=== PATIENT | male | born 1960 | race Caucasian/White ===

== ENCOUNTER 2018-09-03 11:10 | Emergency (ER) | payer OTHER ==
[2018-09-03 11:22] VITALS: BMI 28.5
[2018-09-03] MEDS ORDERED: ALBUTEROL SO4 2.5/IPRATROPIUM 0.5 INH SOL 3 ML VIAL.NEB. NEB ONE (11:35)
[2018-09-03] MEDS: ALBUTEROL SO4 2.5/IPRATROPIUM 0.5 INH SOL 3 ML VIAL.NEB. NEB SCH ×4 (12:08→12:59)
--- NOTE | 2018-09-03 12:08 | PDOC ---
Attending Attestation - HPI HPI: 09/03/18 12:26 The patient is a 58 year old male with a significant past medical history of COPD, anxiety, and hep C who presents to the emergency department for evaluation of nonproductive cough since Thursday. He states he has slight nasal congestion the day prior to his cough onset. He denies SOB, CP, Palpitations, Dizziness, lightheadedness. He denies headache. He denies urinary frequency, urgency, hematuria, and dysuria. He denies changes in BMs. Allergies: Penicillins <Paulette West - Last Filed: 09/03/18 12:26> - Resident Resident Name: Elisa Malhotra - ED Attending Attestation I have performed the following: I have examined & evaluated the patient, The case was reviewed & discussed with the resident, I agree w/resident's findings & plan, Exceptions are as noted - Physicial Exam PE: GENERAL: Awake, alert, and fully oriented, in no acute distress HEAD: No signs of trauma EYES: PERRLA, EOMI, sclera anicteric, conjunctiva clear ENT: Auricles normal inspection, hearing grossly normal, nares patent, oropharynx clear without exudates. Moist mucosa NECK: Normal ROM, supple, no lymphadenopathy, JVD, or masses LUNGS: Dec air entry B/L, intermittent hacking cough. +Rhonchi and exp wheezes B /L. HEART: Regular rate and rhythm, normal S1 and S2, no murmurs, rubs or gallops ABDOMEN: Soft, nontender, normoactive bowel sounds. No guarding, no rebound. No masses EXTREMITIES: Normal range of motion, no edema. No clubbing or cyanosis. No cords, erythema, or tenderness NEUROLOGICAL: Cranial nerves II through XII grossly intact. Normal speech, normal gait. Motor and sensation intact SKIN: Warm, Dry, normal turgor, no rashes or lesions noted. - Medical Decision Making COPD exacerbation likely due to viral illness, with exacerbation of bronchitis. Will give nebs, steroids, azithro. <Marlen Sauer - Last Filed: 09/03/18 12:36> Attestations - Attestations 09/03/18 12:30 Documentation prepared by Paulette West, acting as medical file clerk for Marlen Sauer MD <Paulette West - Last Filed: 09/03/18 12:26>
[2018-09-03] MEDS ORDERED: methylPREDNISolone NA SUCC 125 MG/2 ML VIAL IVPUSH ONE (12:24)
--- NOTE | 2018-09-03 12:24 | PDOC ---
History of Present Illness - General Chief Complaint: Shortness of Breath Stated Complaint: SOB Time Seen by Provider: 09/03/18 11:52 - History of Present Illness Initial Comments: 09/03/18 12:22 Patient is a 58 y/o male with a hsitory of COPD, anxiety, and hep C who presents for cough. On thursday he felt his sinuses feeling a little congested. By thursday he started coughing and it has not gotten better. The coughing at night is especially bothersome, he bought over the counter cold medicine but it has not helped. He has abdominal pain from coughing so much. His COPD has been under control with his Spiriva and Advair but for the last couple of months he has not had his Advair due to insurance refusing to pay for it. he does not use oxygen at home. He is not bringing any sputum up with his cough. He had a fever earlier in the week but reports it has since resolved. Denies nausea, vomiting, chest pain, headache. Past History - Past Medical History Allergies/Adverse Reactions: Allergies Allergy/AdvReac Type Severity Reaction Status Date / Time Penicillins Allergy Verified 09/03/18 11:18 Home Medications: Ambulatory Orders Aspirin [ASA -] 81 mg PO DAILY 09/03/18 Azithromycin 250 mg PO DAILY #4 tablet 09/03/18 Cholecalciferol (Vitamin D3) [Vitamin D3 -] 1,200 unit PO DAILY 09/03/18 Donepezil HCl [Aricept] 10 mg PO DAILY 09/03/18 Duloxetine HCl [Cymbalta -] 30 mg PO DAILY 09/03/18 Fluticasone/Salmeterol [Advair 250-50 Diskus] 2 inhaler IH DAILY 09/03/18 Guaifenesin AC [Robitussin AC] 5 ml PO Q6H PRN #60 ml MDD 20 mL 09/03/18 Lamotrigine [Lamictal] 150 mg PO DAILY 09/03/18 Tiotropium [place] [Spiriva] 1 inh IH DAILY 09/03/18 COPD: Yes (COPD, BROKEN RIBS) Psychiatric Problems: Yes (DEPRESSION, ANXEITY) - Suicide/Smoking/Psychosocial Hx Smoking History: Former smoker Have you smoked in the past 12 months: Yes Number of Cigarettes Smoked Daily: 10 If you are a former smoker, when did you quit?: 05/02 Information on smoking cessation initiated: No 'Breaking Loose' booklet given: 09/28/17 Hx Alcohol Use: No Drug/Substance Use Hx: No Substance Use Type: None Review of Systems - Review of Systems Constitutional: No: Chills, Fever HEENTM: No: Eye Pain Respiratory: Yes: Cough, Shortness of Breath, Wheezing Cardiac (ROS): No: Chest Pain ABD/GI: No: Diarrhea, Nausea, Vomiting *Physical Exam - Vital Signs Last Vital Signs Temp Pulse Resp BP Pulse Ox 98.6 F 105 H 22 H 149/90 96 09/03/18 11:19 09/03/18 11:19 09/03/18 11:19 09/03/18 11:19 09/03/18 11:19 - Physical Exam Comments: 09/03/18 12:35 GENERAL: A&O x3, no acute distress, HEART: RRR, no murmurs, rubs, or gallops LUNGS: expiratory wheezes, coughing without sputum production ABDOMEN: soft, nontender to palpation EXTREMITES: no pitting edema SKIN: no rashes or lesions noted Moderate Sedation - Procedure Monitoring Vital Signs: Procedure Monitoring Vital Signs Temperature 98.6 F 09/03/18 11:19 Pulse Rate 105 H 09/03/18 11:19 Respiratory Rate 22 H 09/03/18 11:19 Blood Pressure 149/90 09/03/18 11:19 O2 Sat by Pulse Oximetry (%) 96 09/03/18 11:19 ED Treatment Course - LABORATORY CBC & Chemistry Diagram: 09/03/18 12:45 09/03/18 12:45 - RADIOLOGY Radiology Studies Ordered: Category Date Time Status CHEST X-RAY PORTABLE* [RAD] Routine Radiology 09/04/18 06:00 Ordered Medical Decision Making - Medical Decision Making 09/03/18 12:39 f/u CXR, labs, solumedrol 125 given once, azythromycin 500 once 09/03/18 14:59 CXR clear, labs WNL, symptoms improved with medication, stable for DC *DC/Admit/Observation/Transfer Diagnosis at time of Disposition: COPD exacerbation - Discharge Dispostion Disposition: HOME Condition at time of disposition: Improved - Prescriptions Prescriptions: Azithromycin 250 mg PO DAILY #4 tablet Guaifenesin AC [Robitussin AC] 5 ml PO Q6H PRN #60 ml MDD 20 mL PRN Reason: Cough - Referrals Referrals: Arie Martin MD [Primary Care Provider] - - Patient Instructions Printed Discharge Instructions: DI for Chronic Obstructive Pulmonary Disease Additional Instructions: You came to the Emergency Department for coughing that cause your COPD to be exacerbated. Please take: Azythromycin 250 mg by mouth for four days Robitussin 5 mL by mouth every 6 hours as needed. Do not exceed 20 mL/day Please make an appointment to follow up with your director of clinical education in one week. Please continue to take your home medications as prescribed. Return to the Emergency Department if you have nausea, vomiting, shortness of breath, chest pain, or headache. - Post Discharge Activity
[2018-09-03] MEDS ORDERED: AZITHROMYCIN IVPB 500 MG in DEXTROSE 5%-WATER - 250 ML IVPB ONE (12:25)
[2018-09-03] MEDS ORDERED: guaiFENesin/CODEINE 10 ML UNIT-DOSE CUPS PO ONE (12:26)
[2018-09-03] MEDS ORDERED: guaiFENesin/CODEINE 5 ML UNIT-DOSE CUPS PO ONE (12:36)
[2018-09-03] MEDS ORDERED: AZITHROMYCIN IVPB 500 MG/250 ML BAG IVPB ONE (12:36)
[2018-09-03] MEDS ORDERED: methylPREDNISolone NA SUCC 125 MG/2 ML VIAL ONE (12:36)
[2018-09-03 13:06] LABS: HEMATOCRIT 47.4 % (35.4-49); HEMOGLOBIN 16.4 GM/dL (11.7-16.9); MCH 31.2 pg (25.7-33.7); MCHC 34.5 g/dl (32.0-35.9); MEAN CELL VOLUME 90.3 fl (80-96); MEAN PLT VOLUME 6.8 fl (7.5-11.1); PLATELET COUNT 311 K/MM3 (134-434); RBC 5.25 M/mm3 (4.00-5.60); RDW 13.7 % (11.9-15.9); WHITE BLOOD COUNT 9.8 K/mm3 (4.0-10.0)
[2018-09-03 13:34] LABS: ALK PHOS 110 U/L (45-117); ANION GAP 8 MMOL/L (8-16); BILIRUBIN,TOTAL 0.6 mg/dL (0.2-1); BLOOD UREA NITROGEN 9 mg/dL (7-18); CALCIUM 8.9 mg/dL (8.5-10.1); CHLORIDE 100 mmol/L (98-107); CO2 26 mmol/L (21-32); CREATININE 0.8 mg/dL (0.55-1.3); GLUCOSE,RANDOM 102 mg/dL (74-106); POTASSIUM 3.6 mmol/L (3.5-5.1); SGOT/AST 13 U/L (15-37); SGPT/ALT 22 U/L (13-61); SODIUM 134 mmol/L (136-145); TOT PROT 7.4 g/dl (6.4-8.2)
[2018-09-03 16:02] VITALS: BP 143/78; PULSE 98; TEMP 98.3
--- NOTE | 2018-09-04 17:12 | EKG ---
Test Reason : Blood Pressure : / mmHG Vent. Rate : 097 BPM Atrial Rate : 097 BPM P-R Int : 150 ms QRS Dur : 094 ms QT Int : 332 ms P-R-T Axes : 075 004 055 degrees QTc Int : 421 ms NORMAL SINUS RHYTHM NORMAL ECG WHEN COMPARED WITH ECG OF 28-SEP-2017 17:26, NO SIGNIFICANT CHANGE WAS FOUND Confirmed by EFFIE CIFUENTES MD ([id number]) on 09/04/2018 5:12:16 PM Referred By: Confirmed By:EFFIE CIFUENTES MD
== END 2018-09-03 15:45 | disposition home or self-care (01) ==
LOC: JER 11:10
PROC: 3E0F7GC Introduction of Other Therapeutic Substance into Respiratory Tract, Via Natural or Artificial Opening (ICD-10-PCS; principal; 2018-09-03)
PROC: 3E03329 Introduction of Other Anti-infective into Peripheral Vein, Percutaneous Approach (ICD-10-PCS; 2018-09-03)
PROC: 3E033GC Introduction of Other Therapeutic Substance into Peripheral Vein, Percutaneous Approach (ICD-10-PCS; 2018-09-03)
DX: J44.9 Chronic obstructive pulmonary disease, unspecified (principal); Z87.891 Personal history of nicotine dependence; F41.8 Other specified anxiety disorders
CPT/HCPCS: 36415; 71045-TC-FY; 80053; 85027; 93005; 93010; 94640; 96365; 96375; 99282-25

== ENCOUNTER 2019-06-20 12:00 | Day surgery (SDC) | payer OTHER ==
[2019-06-17 15:02] VITALS: BMI 25.0
[2019-06-20 14:25] VITALS: TEMP 98
[2019-06-20 15:27] VITALS: BP 128/81; PULSE 81
--- NOTE | 2019-06-22 16:38 | PATH ---
Surgical Pathology Report Patient Name: MARICRUZ HAINES [facility]. Rec. #: [id number] /Age/Gender: 1960 (Age: 59) / M Account: [id number] Location: U-ENDOSCOPY Taken: 06/20/2019 Received: 06/21/2019 Reported: 06/22/2019 Physicians: Emmanuel Glover M.D. Specimen(s) Received A: DISTAL TRANSVERSE COLON POLYP B: HOT SNARE MID TRANSVERSE COLON POLYP C: BX HEPATIC FLEXURE POLYP D: HEPATIC FLEXURE THICKENED FOLD E: PROXIMAL TRANSVERSE COLON POLYP F: PROXIMAL DESCENDING COLON POLYPS G: MID DESCENDING COLON POLYP Clinical History Family history of colon cancer, history of colon polyp Postoperative diagnosis: Polyps, hepatic flexure thickened fold Final Diagnosis A. DISTAL TRANSVERSE COLON POLYP, POLYPECTOMY: TUBULAR ADENOMA. B. MID TRANSVERSE COLON POLYP, POLYPECTOMY: TUBULAR ADENOMA. C. HEPATIC FLEXURE POLYP, POLYPECTOMY: TUBULAR ADENOMA. D. HEPATIC FLEXURE THICKENED FOLD, BIOPSY: COLONIC MUCOSA WITH FOCAL SURFACE HYPERPLASTIC CHANGE AND REACTIVE LYMPHOID AGGREGATE. E. PROXIMAL TRANSVERSE COLON POLYP, POLYPECTOMY: TUBULOVILLOUS ADENOMA. F. PROXIMAL DESCENDING COLON POLYPS (3), POLYPECTOMY: TUBULAR ADENOMA, THREE FRAGMENTS. G. MID DESCENDING COLON POLYP, POLYPECTOMY: TUBULAR ADENOMA. Electronically Signed Tim Boucher M.D. Gross Description A. Received in formalin, labeled "biopsy distal transverse colon polyp" is a herrera, irregular portion of soft tissue measuring 0.5 cm. in greatest dimension. The specimen is submitted in toto in one cassette. B. Received in formalin, labeled "mid transverse colon polyp" are 3 herrera, irregular portions of soft tissue ranging from 0.4-0.6 cm. in greatest dimension. The specimens are submitted in toto in one cassette. C. Received in formalin, labeled "hepatic flexure polyp" is a herrera, polypoid portion of soft tissue measuring 0.6 cm. in greatest dimension. The specimen is submitted in toto in one cassette. D. Received in formalin, labeled "biopsy hepatic flexure thickened fold" are 2 herrera, irregular portions of soft tissue measuring 0.3 and 0.5 cm. in greatest dimension. The specimens are submitted in toto in one cassette. E. Received in formalin, labeled "proximal transverse colon polyp" are 2 herrera, irregular portions of soft tissue measuring 0.4 and 0.6 cm. in greatest dimension. The specimens are submitted in toto in one cassette. F. Received in formalin, labeled "proximal descending colon polyps" are 3 herrera, irregular portions of soft tissue ranging from 0.2-0.5 cm. in greatest dimension. The specimens are submitted in toto in one cassette. G. Received in formalin, labeled "mid descending colon polyp" is a herrera, polypoid portion of soft tissue measuring 0.7 cm. in greatest dimension. The specimen is submitted in toto in one cassette. 06/21/2019 saudi06/21/2019
== END 2019-06-20 15:10 | disposition home or self-care (01) ==
LOC: JOR 12:00 → JASU-ENDO 12:00
PROVIDERS: ATTEND Internal Medicine Gastroenterology
PROC: 0DBL8ZX Excision of Transverse Colon, Via Natural or Artificial Opening Endoscopic, Diagnostic (ICD-10-PCS; principal; 2019-06-20 14:00)
DX: Z12.11 Encounter for screening for malignant neoplasm of colon (principal); Z86.010 Personal history of colon polyps; Z80.0 Family history of malignant neoplasm of digestive organs; D12.4 Benign neoplasm of descending colon; D12.3 Benign neoplasm of transverse colon
CPT/HCPCS: 88305-TC

== ENCOUNTER 2020-01-02 15:53 | Emergency (ER) | payer OTHER ==
[2020-01-02 16:03] VITALS: TEMP 98.8; BMI 23.6
--- NOTE | 2020-01-02 16:03 | PDOC ---
Rapid Medical Evaluation Medical Evaluation: Allergies Allergy/AdvReac Type Severity Reaction Status Date / Time Penicillins Allergy Verified 11/18/19 18:19 IVP DYE Allergy Uncoded 11/18/19 18:19 01/02/20 15:59 59 yo M h/o COPD, depression, anxiety, right hand dominant c/o unable to move L wrist since yesterday am. denies trauma, f/c, weakness, ULRICH, numbness, tingling or any other complaint. sent to ED from urgent care center. VSS L wrist drop ambulatory A/P: L wrist drop to ED for eval
--- NOTE | 2020-01-02 16:13 | PDOC ---
History of Present Illness - General Chief Complaint: Weakness Stated Complaint: L/ARM WEAKNESS Time Seen by Provider: 01/02/20 16:12 History Source: Patient Exam Limitations: No Limitations - History of Present Illness Initial Comments: 01/02/20 16:13 59 yo M h/o COPD, depression, anxiety, hepC, right hand dominant presenting w wrist drop and LUE numbness/weakness since Thursday morning. Told to go to ED for further eval by PCP but didn't come until now d/t fear of covid. Symptoms have mildly improved since yesterday. May have slept on L arm overnight. Denies arm pain, trauma Past History - Medical History Allergies/Adverse Reactions: Allergies Allergy/AdvReac Type Severity Reaction Status Date / Time Penicillins Allergy Verified 01/02/20 16:03 IVP DYE Allergy Uncoded 01/02/20 16:03 Home Medications: Ambulatory Orders Aspirin [ASA -] 81 mg PO DAILY 09/03/18 Fluticasone/Salmeterol [Advair 250-50 Diskus] 2 puff PO DAILY 09/03/18 Tiotropium [place] [Spiriva] 2 puff IH DAILY 09/03/18 Clindamycin [Cleocin -] 300 mg PO Q6HPO #28 capsule 11/18/19 Divalproex *ER* [Depakote *ER* -] 750 mg PO DAILY 11/18/19 Duloxetine HCl [Cymbalta] 40 mg PO DAILY 11/18/19 Duloxetine HCl [Cymbalta] 120 mg PO DAILY 11/18/19 COPD: Yes (COPD, BROKEN RIBS) GI Disorders: Yes (COLON POLYP) Liver Disease: Yes (HAD HEPATITIS B and C IN THE PAST) Psychiatric Problems: Yes (DEPRESSION, ANXEITY) - Immunization History Immunization Up to Date: No - Psycho-Social/Smoking History Smoking History: Never smoked Have you smoked in the past 12 months: Yes Number of Cigarettes Smoked Daily: 10 If you are a former smoker, when did you quit?: 05/02 'Breaking Loose' booklet given: 06/20/19 Review of Systems - Review of Systems Constitutional: No: Chills, Fever HEENTM: No: Eye Pain, Ear Discharge Respiratory: No: Cough, Shortness of Breath Cardiac (ROS): No: Chest Pain, Lightheadedness ABD/GI: No: Nausea, Vomiting : No: Burning, Dysuria Musculoskeletal: No: Back Pain, Joint Pain Integumentary: No: Bruising, Dryness Neurological: No: Seizure, Ataxia Psychiatric: No: Anxiety, Depression Endocrine: No: Intolerance to Cold, Intolerance to Heat Hematologic/Lymphatic: No: Anemia, Blood Clots *Physical Exam - Vital Signs Last Vital Signs Temp Pulse Resp BP Pulse Ox 98.8 F 89 18 141/86 96 01/02/20 15:56 01/02/20 15:56 01/02/20 15:56 01/02/20 15:56 01/02/20 15:56 - Physical Exam General Appearance: Yes: Nourished, Appropriately Dressed. No: Apparent Distress HEENT: positive: EOMI, YOU, Normal Voice, Hearing Grossly Normal, Other (equal sensation alessandro face, normal eyelid closing). negative: Scleral Icterus (R), Scleral Icterus (L) Neck: positive: Other (equal shoulder shrug) Respiratory/Chest: positive: Lungs Clear, Normal Breath Sounds. negative: Chest Tender, Respiratory Distress Cardiovascular: positive: Regular Rhythm, Regular Rate, S1, S2. negative: Edema, Murmur Comments:: 01/02/20 16:49 2+ radial pulses alessandro Gastrointestinal/Abdominal: positive: Normal Bowel Sounds, Flat, Soft. negative: Tender, Organomegaly Extremity: positive: Other (Reduced sensation dorsal>plantar L forearm and hand, wrist drop, not tender, warm, weak finger and wrist extension, 5/5 shoulder flex/extension. 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 negative: Motor Strength 5/5 Medical Decision Making - Medical Decision Making 01/02/20 16:47 59 yo M h/o COPD, depression, anxiety, hepC, right hand dominant presenting w wrist drop and LUE numbness/weakness since Thursday d/t radial nerve compression/Thursday palsy. Distal pulses intact. No sign of trauma. Low concern for CVA (no cranial nerve involvement) DC home w wrist splint, neuro referral Discharge - Discharge Information Problems reviewed: Yes Clinical Impression/Diagnosis: Thursday nerve palsy Qualifiers: Laterality: left Qualified Code(s): G56.32 - Lesion of radial nerve, left upper limb Condition: Good Disposition: HOME - Follow up/Referral Referrals: Arie Martin MD [Primary Care Provider] - Dat Forbes MD [Staff Physician] - - Patient Discharge Instructions Patient Printed Discharge Instructions: Peripheral Neuropathy Additional Instructions: You have a nerve compression called Thursday Night Palsy likely due to sleeping on your arm Keep your arm in a splint Please follow up with the referred neurologist Dr Forbes - Post Discharge Activity
--- NOTE | 2020-01-02 16:56 | PDOC ---
Documentation entered by Marcial Matute SCRIBE, acting as scribe for Kathi Berger MD. Kathi Berger MD: This documentation has been prepared by the zoieibe, Marcial Matute SCRIBE, under my direction and personally reviewed by me in its entirety. I confirm that the documentation accurately reflects all work, treatment, procedures, and medical decision making performed by me. Attending Attestation - Resident Resident Name: Ambrosio Clinton - ED Attending Attestation I have performed the following: I have examined & evaluated the patient, The case was reviewed & discussed with the resident, I agree w/resident's findings & plan, Exceptions are as noted - HPI HPI: 01/02/20 16:49 59 yo M p/w L wrist weakness and decreased sensation over L forearm since yesterday morning. Woke up with symptoms. Says the decreased sensation has been improving but is not back to [place]. Denies any known trauma. Reports that he sleeps on his L side and is not sure if he slept on his arm but states that in the past has woken up with mild weakness or tingling/numbness but would resolve after ~20 minutes. Pt. came to the ED due to persistence of symptoms. Denies any other complaints. Pt is R hand dominant. - Physicial Exam PE: 01/02/20 16:51 [place]: well appearing Extremities: + radial pulses, +wrist drop, unable to fully extend at fingers, flexion/extension at elbow intact, decreased sensation to light tough over dorsum of L hand and extensor surface of L forearm, strength preserved in RUE and b/l LEs - Medical Decision Making 01/02/20 16:54 59 yo M with likely peripheral neuropathy, appears to be in distribution of radial nerve, likely thursday night palsy possibly from compression during sleep. Doubt CVA as hx and exam more consistent with peripheral neuropathy. Plan: -d/c with splint in place, recommend PMD f/u, return precautions given This clinical encounter is taking place during a federal and state health care emergency attributable to the novel Barber Virus pandemic. The Director [employer] of the Department of Health and Human Services has declared, pursuant to the Public Health Service Act 319F-3 (42 U.S[place]C. 247d-6d), that a covered persons activities related to medical countermeasures against COVID-19 will be immune from liability under Federal and State law. Discharge - Discharge Information Problems reviewed: Yes Clinical Impression/Diagnosis: Thursday night nerve palsy Condition: Good Disposition: HOME - Follow up/Referral Referrals: Arie Martin MD [Primary Care Provider] - Dat Forbes MD [Staff Physician] - - Patient Discharge Instructions Patient Printed Discharge Instructions: Peripheral Neuropathy Additional Instructions: You have a nerve compression called Thursday Palsy likely due to sleeping on your arm Keep your arm in a splint Please follow up with the referred neurologist Dr Forbes - Post Discharge Activity
[2020-01-02 18:31] VITALS: BP 148/75; PULSE 78
== END 2020-01-02 18:38 | disposition home or self-care (01) ==
LOC: JER 15:53
DX: G56.32 Lesion of radial nerve, left upper limb (principal)
CPT/HCPCS: 99282-25

== ENCOUNTER 2020-07-13 13:21 | Emergency (ER) | payer OTHER ==
[2020-07-13 13:33] VITALS: TEMP 98.1; BMI 27.7
[2020-07-13] MEDS ORDERED: ALBUTEROL SO4 2.5/IPRATROPIUM 0.5 INH SOL 3 ML VIAL.NEB. NEB ONE ×2 (13:56→14:24)
[2020-07-13] MEDS ORDERED: methylPREDNISolone NA SUCC 125 MG/2 ML VIAL IVPB ONE (14:34)
[2020-07-13] MEDS ORDERED: AZITHROMYCIN IVPB 500 MG in DEXTROSE 5%-WATER - 250 ML IVPB ONE (14:34)
[2020-07-13] MEDS ORDERED: methylPREDNISolone NA SUCC 125 MG/2 ML VIAL ONE (14:39)
[2020-07-13] MEDS ORDERED: AZITHROMYCIN IVPB 500 MG/250 ML BAG IVPB ONE (14:39)
[2020-07-13 14:46] LABS: VENOUS BASE EXCESS 3.4 mmol/L (-2-2); VENOUS O2 SATURATION 47.8 % (70-80); VENOUS PCO2 65.8 mmHg (38-52); VENOUS PH 7.307 (7.310-7.410)
[2020-07-13] MEDS: ALBUTEROL SO4 2.5/IPRATROPIUM 0.5 INH SOL 3 ML VIAL.NEB. NEB SCH ×2 (14:46→15:02)
[2020-07-13 15:05] LABS: INR 0.97 (0.83-1.09); PROTHROMBIN TIME (PATIENT) 11.8 SEC (9.7-13.0)
[2020-07-13 15:07] LABS: BASO % 1.1 % (0-2.0); EOS % 3.6 % (0-4.5); HEMATOCRIT 46.7 % (35.4-49); HEMOGLOBIN 15.6 GM/dL (11.7-16.9); LYMPH % 22.1 % (8-40); MCH 30.7 pg (25.7-33.7); MCHC 33.4 g/dl (32.0-35.9); MEAN CELL VOLUME 92.1 fl (80-96); MONO % 8.1 % (3.8-10.2); NEUT % 65.1 % (42.8-82.8); PLATELET COUNT 292 K/MM3 (134-434); RBC 5.07 M/mm3 (4.00-5.60); RDW 14.7 % (11.9-15.9)
[2020-07-13 15:15] LABS: CHLORIDE 99 mmol/L (98-107); POTASSIUM 4.3 mmol/L (3.5-5.1); SODIUM 140 mmol/L (136-145)
[2020-07-13 15:17] LABS: CALCIUM 8.9 mg/dL (8.5-10.1)
[2020-07-13 15:18] LABS: ALBUMIN 3.9 g/dl (3.4-5.0); ANION GAP 8 MMOL/L (8-16); BLOOD UREA NITROGEN 9.4 mg/dL (7-18); CO2 34 mmol/L (21-32); GLUCOSE,RANDOM 84 mg/dL (74-106)
[2020-07-13 15:20] LABS: BILIRUBIN,DIRECT 0.1 mg/dL (0.0-0.2)
[2020-07-13 15:21] LABS: CREATININE 0.6 mg/dL (0.55-1.3); SGOT/AST 9 U/L (15-37); SGPT/ALT 26 U/L (13-61)
[2020-07-13 15:22] LABS: BILIRUBIN,TOTAL 0.3 mg/dL (0.2-1); LDH 226 U/L (87-246)
[2020-07-13 15:23] LABS: ALK PHOS 91 U/L (45-117)
[2020-07-13] MEDS ORDERED: ALBUTEROL SO4 0.083% IH SOL 2.5 MG/3 ML VIAL.NEB. NEB ONE ×2 (15:32→15:37)
[2020-07-13 16:34] VITALS: BP 141/70; PULSE 95
== END 2020-07-13 16:23 | disposition left against medical advice (07) ==
LOC: JER 13:21
PROC: 3E0F7GC Introduction of Other Therapeutic Substance into Respiratory Tract, Via Natural or Artificial Opening (ICD-10-PCS; principal; 2020-07-13)
PROC: 3E0F7GC Introduction of Other Therapeutic Substance into Respiratory Tract, Via Natural or Artificial Opening (ICD-10-PCS; 2020-07-13)
PROC: 3E033NZ Introduction of Analgesics, Hypnotics, Sedatives into Peripheral Vein, Percutaneous Approach (ICD-10-PCS; 2020-07-13)
PROC: 3E033GC Introduction of Other Therapeutic Substance into Peripheral Vein, Percutaneous Approach (ICD-10-PCS; 2020-07-13)
DX: J44.1 Chronic obstructive pulmonary disease with (acute) exacerbation (principal)
CPT/HCPCS: 36415; 71045-TC-FY; 80053; 82248; 82550; 82728; 82803; 83615; 83880; 84484; 85025; 85379; 85610; 85730; 86140; 93005; 93010; 99285-25

== ENCOUNTER 2021-05-13 03:25 | Inpatient (IN) | payer OTHER ==
[2021-05-13] MEDS ORDERED: ALBUTEROL SO4 2.5/IPRATROPIUM 0.5 INH SOL 3 ML VIAL.NEB. NEB ONE ×5 (03:35→12:42)
[2021-05-13 03:44] VITALS: BMI 25.9
[2021-05-13] MEDS ORDERED: ACETAMINOPHEN 325 MG TABLET (FP) PO ONE (03:47)
[2021-05-13] MEDS ORDERED: predniSONE 20 MG TABLET (UD) PO ONE (03:47)
[2021-05-13] MEDS ORDERED: ACETAMINOPHEN 1000 MG/100 ML BAG IVPB ONE (03:52)
[2021-05-13] MEDS ORDERED: LACTATED RINGERS SOLUTION 1000 ML INFUS.BAG IV ONE (03:52)
[2021-05-13] MEDS ORDERED: methylPREDNISolone NA SUCC 125 MG/2 ML VIAL IVPUSH ONE (03:52)
[2021-05-13] MEDS ORDERED: ACETAMINOPHEN INJECTION 100 ML IVPB ONE (04:00)
[2021-05-13] MEDS ORDERED: methylPREDNISolone NA SUCC 125 MG/2 ML VIAL ONE (04:00)
[2021-05-13 04:33] LABS: HEMATOCRIT 48.1 % (35.4-49); MCH 30.5 pg (25.7-33.7); MCHC 33.3 g/dl (32.0-35.9); MEAN CELL VOLUME 91.5 fl (80-96); MEAN PLT VOLUME 7.4 fl (7.5-11.1); PLATELET COUNT 232 10^3/uL (134-434); RBC 5.26 M/mm3 (4.00-5.60); RDW 14.3 % (11.9-15.9); WHITE BLOOD COUNT 16.4 K/mm3 (4.0-10.0)
[2021-05-13 05:00] LABS: CHLORIDE 93 mmol/L (98-107); SODIUM 135 mmol/L (136-145)
[2021-05-13 05:02] LABS: ANION GAP 7 MMOL/L (8-16); BLOOD UREA NITROGEN 5.8 mg/dL (7-18); CALCIUM 8.4 mg/dL (8.5-10.1); CO2 34 mmol/L (21-32)
[2021-05-13 05:03] LABS: GLUCOSE,RANDOM 147 mg/dL (74-106)
[2021-05-13 05:05] LABS: SGPT/ALT 20 U/L (13-61)
[2021-05-13 05:06] LABS: CREATININE 0.7 mg/dL (0.55-1.3); SGOT/AST 11 U/L (15-37)
[2021-05-13 05:07] LABS: BILIRUBIN,TOTAL 1.1 mg/dL (0.2-1); TOT PROT 6.5 g/dl (6.4-8.2)
[2021-05-13 05:08] LABS: ALK PHOS 130 U/L (45-117)
[2021-05-13] MEDS ORDERED: AZITHROMYCIN IVPB 500 MG in DEXTROSE 5%-WATER - 250 ML IVPB ONE (05:33)
[2021-05-13] MEDS ORDERED: ACETAMINOPHEN 325 MG TABLET (FP) PO PRN (05:36)
[2021-05-13] MEDS ORDERED: ALBUTEROL SO4 HFA INHALER IH PRN (05:39)
[2021-05-13] MEDS ORDERED: AZITHROMYCIN IVPB 500 MG/250 ML BAG IVPB ONE (05:59)
[2021-05-13 06:35] LABS: BASO % 0.6 % (0-2.0); EOS % 0.2 % (0-4.5); HEMATOCRIT 45.7 % (35.4-49); HEMOGLOBIN 15.4 GM/dL (11.7-16.9); LYMPH % 3.1 % (8-40); MCH 31.2 pg (25.7-33.7); MCHC 33.7 g/dl (32.0-35.9); MEAN CELL VOLUME 92.5 fl (80-96); MEAN PLT VOLUME 7.4 fl (7.5-11.1); MONO % 5.6 % (3.8-10.2); NEUT % 90.5 % (42.8-82.8); PLATELET COUNT 208 10^3/uL (134-434); RBC 4.95 M/mm3 (4.00-5.60); RDW 14.5 % (11.9-15.9); WHITE BLOOD COUNT 14.1 K/mm3 (4.0-10.0)
[2021-05-13 06:50] LABS: ALBUMIN 2.8 g/dl (3.4-5.0); BLOOD UREA NITROGEN 5.4 mg/dL (7-18); CALCIUM 8.4 mg/dL (8.5-10.1)
[2021-05-13 06:53] LABS: CREATININE 0.6 mg/dL (0.55-1.3)
[2021-05-13 06:54] LABS: PHOSPHOROUS 2.8 mg/dL (2.5-4.9)
[2021-05-13 06:55] LABS: BILIRUBIN,TOTAL 1.1 mg/dL (0.2-1); TOT PROT 6.1 g/dl (6.4-8.2)
[2021-05-13] MEDS ORDERED: methaDONE HCL 40 MG DISPERSABLE TABLET PO ONE (07:30)
[2021-05-13] MEDS ORDERED: CEFTRIAXONE 1 GM/50 ML BAG ONE (08:22)
[2021-05-13] MEDS ORDERED: methaDONE HCL 40 MG DISPERSABLE TABLET ONE (09:08)
[2021-05-13] MEDS: ALBUTEROL SO4 2.5/IPRATROPIUM 0.5 INH SOL 3 ML VIAL.NEB. NEB SCH ×2 (09:15→13:13)
[2021-05-13] MEDS ORDERED: methylPREDNISolone NA SUCC 40 MG/1 ML VIAL IVPUSH SCH ×2 (10:00→15:28)
[2021-05-13] MEDS ORDERED: methylPREDNISolone NA SUCC 40 MG/1 ML VIAL ONE (10:44)
[2021-05-13] MEDS ORDERED: PT OWN MED DRAWER 7, Y5N ONE ×2 (10:44→21:07)
[2021-05-13] MEDS ORDERED: ENOXAPARIN NA (PORCINE) 40 MG/0.4 ML DISP.SYRIN SQ ONE (10:44)
[2021-05-13] MEDS: NICOTINE 14 MG/24 HOURS TOPICAL PATCH TD SCH (10:50)
[2021-05-13] MEDS: ENOXAPARIN NA (PORCINE) 40 MG/0.4 ML DISP.SYRIN SQ SCH (10:50)
[2021-05-13] MEDS: methylPREDNISolone NA SUCC 40 MG/1 ML VIAL IVPUSH SCH (17:37)
[2021-05-13 18:48] LABS: EPI CELLS 3 /uL (0-25.1); HYALINE CASTS 1 /uL (0-3.1); URINE APPEARANCE CLEAR; URINE BACTERIA 1 /uL (0-1359); URINE BILIRUBIN 1+ (NEGATIVE); URINE COLOR DK YELLOW; URINE GLUCOSE (UA) 2+ (NEGATIVE); URINE KETONE TRACE (NEGATIVE); URINE LEUK ESTERASE NEGATIVE (NEGATIVE); URINE NITRITE NEGATIVE (NEGATIVE); URINE PROTEIN 1+ (NEGATIVE); URINE RBC 26 /uL (0-23.9); URINE WBC 5 /uL (0-25.8)
[2021-05-13] MEDS ORDERED: MELATONIN 5 MG TABLETS PO ONE (20:12)
[2021-05-13] MEDS: BUDESONIDE/FORMETEROL FUMARATE 160/4.5 mcg INHALER IH SCH ×2 (20:29→21:10)
[2021-05-13] MEDS: CEFTRIAXONE 1 GM in DEXTROSE 5%-WATER - 50 ML IVPB SCH ×2 (20:31→20:32)
[2021-05-13] MEDS: MONTELUKAST NA 5 MG TAB.CHEW PO SCH (22:37)
[2021-05-14] MEDS: methylPREDNISolone NA SUCC 40 MG/1 ML VIAL IVPUSH SCH ×3 (01:32→17:03)
[2021-05-14] MEDS: methaDONE HCL 40 MG DISPERSABLE TABLET PO SCH (05:06)
[2021-05-14 09:27] LABS: HEMATOCRIT 44.3 % (35.4-49); HEMOGLOBIN 14.6 GM/dL (11.7-16.9); MCH 30.5 pg (25.7-33.7); MEAN CELL VOLUME 92.4 fl (80-96); MEAN PLT VOLUME 7.7 fl (7.5-11.1); PLATELET COUNT 247 10^3/uL (134-434); RDW 14.3 % (11.9-15.9); WHITE BLOOD COUNT 16.1 K/mm3 (4.0-10.0)
[2021-05-14] MEDS: ENOXAPARIN NA (PORCINE) 40 MG/0.4 ML DISP.SYRIN SQ SCH (09:34)
[2021-05-14] MEDS: DULoxetine HCL 30 MG CAPSULE.DR PO SCH (09:34)
[2021-05-14] MEDS: NICOTINE 14 MG/24 HOURS TOPICAL PATCH TD SCH (09:35)
[2021-05-14] MEDS: AZITHROMYCIN IVPB 250 MG in DEXTROSE 5%-WATER - 250 ML IVPB SCH (09:36)
[2021-05-14] MEDS: BUDESONIDE/FORMETEROL FUMARATE 160/4.5 mcg INHALER IH SCH ×2 (09:36→21:23)
[2021-05-14 09:57] LABS: ALBUMIN 2.9 g/dl (3.4-5.0); BLOOD UREA NITROGEN 9.9 mg/dL (7-18); CALCIUM 9.3 mg/dL (8.5-10.1); MAGNESIUM 2.3 mg/dL (1.8-2.4)
[2021-05-14 09:59] LABS: CREATININE 0.6 mg/dL (0.55-1.3)
[2021-05-14 10:01] LABS: BILIRUBIN,TOTAL 0.4 mg/dL (0.2-1); TOT PROT 6.4 g/dl (6.4-8.2)
[2021-05-14 10:30] LABS: ANISOCYTOSIS 0; MACROCYTOSIS 1+; PLATELET ESTIMATE NORMAL
[2021-05-14] MEDS: ALBUTEROL SO4 2.5/IPRATROPIUM 0.5 INH SOL 3 ML VIAL.NEB. NEB SCH ×4 (10:33→20:44)
[2021-05-14] MEDS ORDERED: PT OWN MED DRAWER 7, Y5N ONE (21:09)
[2021-05-14] MEDS: MONTELUKAST NA 5 MG TAB.CHEW PO SCH (21:22)
[2021-05-15] MEDS: methylPREDNISolone NA SUCC 40 MG/1 ML VIAL IVPUSH SCH ×3 (01:17→17:39)
[2021-05-15] MEDS: methaDONE HCL 40 MG DISPERSABLE TABLET PO SCH (05:15)
[2021-05-15] MEDS: ALBUTEROL SO4 2.5/IPRATROPIUM 0.5 INH SOL 3 ML VIAL.NEB. NEB SCH ×4 (07:50→20:07)
[2021-05-15 09:42] LABS: HEMATOCRIT 44.3 % (35.4-49); HEMOGLOBIN 14.6 GM/dL (11.7-16.9); MCHC 33.1 g/dl (32.0-35.9); MEAN CELL VOLUME 93.8 fl (80-96); MEAN PLT VOLUME 7.9 fl (7.5-11.1); PLATELET COUNT 275 10^3/uL (134-434); RBC 4.72 M/mm3 (4.00-5.60); RDW 14.7 % (11.9-15.9); WHITE BLOOD COUNT 15.2 K/mm3 (4.0-10.0)
[2021-05-15 10:20] LABS: CALCIUM 9.5 mg/dL (8.5-10.1)
[2021-05-15 10:21] LABS: MAGNESIUM 2.3 mg/dL (1.8-2.4)
[2021-05-15 10:22] LABS: CREATININE 0.5 mg/dL (0.55-1.3)
[2021-05-15 10:23] LABS: BILIRUBIN,TOTAL 0.4 mg/dL (0.2-1); TOT PROT 6.5 g/dl (6.4-8.2)
[2021-05-15 10:28] LABS: ANISOCYTOSIS 0; MACROCYTOSIS 0; PLATELET ESTIMATE NORMAL
[2021-05-15] MEDS: ENOXAPARIN NA (PORCINE) 40 MG/0.4 ML DISP.SYRIN SQ SCH (10:34)
[2021-05-15] MEDS: DULoxetine HCL 30 MG CAPSULE.DR PO SCH (10:34)
[2021-05-15] MEDS: LURASIDONE HCL 40 MG TABLET PO SCH (10:34)
[2021-05-15] MEDS: NICOTINE 14 MG/24 HOURS TOPICAL PATCH TD SCH (10:34)
[2021-05-15] MEDS: BUDESONIDE/FORMETEROL FUMARATE 160/4.5 mcg INHALER IH SCH ×2 (10:59→22:42)
[2021-05-15] MEDS: AZITHROMYCIN IVPB 250 MG in DEXTROSE 5%-WATER - 250 ML IVPB SCH (10:59)
[2021-05-15] MEDS: guaiFENesin 200 MG/10 ML 10 ML UNIT-DOSE CUPS PO PRN (14:14)
[2021-05-15] MEDS ORDERED: SENNOSIDES 8.6MG TABLET (FP) PO PRN (17:42)
[2021-05-15] MEDS ORDERED: POLYETHYLENE GLYCOL 3350 119 GM BTL PO ONE (17:42)
[2021-05-15] MEDS ORDERED: POLYETHYLENE GLYCOL (HEALTHYLAX) 3350 17 GM PACKET PO ONE (18:00)
[2021-05-15] MEDS: POLYETHYLENE GLYCOL (HEALTHYLAX) 3350 17 GM PACKET PO SCH (19:26)
[2021-05-15] MEDS ORDERED: PT OWN MED DRAWER 7, Y5N ONE (21:33)
[2021-05-15] MEDS: MONTELUKAST NA 5 MG TAB.CHEW PO SCH (22:42)
[2021-05-15] MEDS: DOCUSATE SODIUM 100 MG CAPSULE (FP) PO SCH (22:42)
[2021-05-16] MEDS: methylPREDNISolone NA SUCC 40 MG/1 ML VIAL IVPUSH SCH ×3 (01:23→17:44)
[2021-05-16] MEDS: methaDONE HCL 40 MG DISPERSABLE TABLET PO SCH (05:03)
[2021-05-16] MEDS: ALBUTEROL SO4 2.5/IPRATROPIUM 0.5 INH SOL 3 ML VIAL.NEB. NEB SCH ×4 (08:43→20:30)
[2021-05-16] MEDS ORDERED: PT OWN MED DRAWER 7, Y5N ONE ×2 (10:21→21:08)
[2021-05-16 10:27] LABS: ALBUMIN 3.2 g/dl (3.4-5.0); BLOOD UREA NITROGEN 11.5 mg/dL (7-18); CALCIUM 9.6 mg/dL (8.5-10.1); MAGNESIUM 2.5 mg/dL (1.8-2.4)
[2021-05-16 10:30] LABS: CREATININE 0.5 mg/dL (0.55-1.3)
[2021-05-16 10:32] LABS: BILIRUBIN,TOTAL 0.4 mg/dL (0.2-1); TOT PROT 6.4 g/dl (6.4-8.2)
[2021-05-16] MEDS: DULoxetine HCL 30 MG CAPSULE.DR PO SCH (10:43)
[2021-05-16] MEDS: NICOTINE 14 MG/24 HOURS TOPICAL PATCH TD SCH (10:43)
[2021-05-16] MEDS: ENOXAPARIN NA (PORCINE) 40 MG/0.4 ML DISP.SYRIN SQ SCH (10:44)
[2021-05-16] MEDS: POLYETHYLENE GLYCOL (HEALTHYLAX) 3350 17 GM PACKET PO SCH (10:44)
[2021-05-16] MEDS: BUDESONIDE/FORMETEROL FUMARATE 160/4.5 mcg INHALER IH SCH ×2 (10:47→21:43)
[2021-05-16] MEDS: LURASIDONE HCL 40 MG TABLET PO SCH (10:47)
[2021-05-16] MEDS: AZITHROMYCIN IVPB 250 MG in DEXTROSE 5%-WATER - 250 ML IVPB SCH (10:48)
[2021-05-16 12:18] LABS: BASO % 1.2 % (0-2.0); EOS % 0.1 % (0-4.5); HEMATOCRIT 44.8 % (35.4-49); HEMOGLOBIN 14.8 GM/dL (11.7-16.9); LYMPH % 5.8 % (8-40); MCH 31.3 pg (25.7-33.7); MCHC 33.1 g/dl (32.0-35.9); MEAN CELL VOLUME 94.5 fl (80-96); MEAN PLT VOLUME 7.8 fl (7.5-11.1); MONO % 4.5 % (3.8-10.2); NEUT % 88.4 % (42.8-82.8); PLATELET COUNT 300 10^3/uL (134-434); RBC 4.74 M/mm3 (4.00-5.60); RDW 14.9 % (11.9-15.9); WHITE BLOOD COUNT 13.2 K/mm3 (4.0-10.0)
[2021-05-16 12:45] LABS: ANISOCYTOSIS 0; HELMET CELLS 0; HOWELL-JOLLY BODIES 0; MACROCYTOSIS 0; OVALOCYTE 0; PLATELET ESTIMATE NORMAL; ROULEAU 0; SICKELED CELLS 0; TARGET CELLS 0; TEAR DROP CELLS 0; TOXIC GRANULATION 0
[2021-05-16] MEDS: DOCUSATE SODIUM 100 MG CAPSULE (FP) PO SCH (21:43)
[2021-05-16] MEDS: MONTELUKAST NA 5 MG TAB.CHEW PO SCH (21:44)
[2021-05-17] MEDS: methylPREDNISolone NA SUCC 40 MG/1 ML VIAL IVPUSH SCH ×2 (01:07→11:52)
[2021-05-17] MEDS: methaDONE HCL 40 MG DISPERSABLE TABLET PO SCH (05:34)
[2021-05-17] MEDS: ALBUTEROL SO4 2.5/IPRATROPIUM 0.5 INH SOL 3 ML VIAL.NEB. NEB SCH ×4 (08:45→20:10)
[2021-05-17 10:17] LABS: MCH 30.8 pg (25.7-33.7); MCHC 33.3 g/dl (32.0-35.9); MEAN CELL VOLUME 92.5 fl (80-96); MEAN PLT VOLUME 7.5 fl (7.5-11.1); PLATELET COUNT 282 10^3/uL (134-434); RBC 4.86 M/mm3 (4.00-5.60); RDW 14.6 % (11.9-15.9); WHITE BLOOD COUNT 9.7 K/mm3 (4.0-10.0)
[2021-05-17 10:45] LABS: CALCIUM 9.2 mg/dL (8.5-10.1)
[2021-05-17 10:46] LABS: ALBUMIN 3.1 g/dl (3.4-5.0); BLOOD UREA NITROGEN 12.6 mg/dL (7-18); MAGNESIUM 2.6 mg/dL (1.8-2.4)
[2021-05-17 10:49] LABS: CREATININE 0.5 mg/dL (0.55-1.3)
[2021-05-17 10:50] LABS: BILIRUBIN,TOTAL 0.4 mg/dL (0.2-1); TOT PROT 6.1 g/dl (6.4-8.2)
[2021-05-17] MEDS: DULoxetine HCL 30 MG CAPSULE.DR PO SCH (11:51)
[2021-05-17] MEDS: POLYETHYLENE GLYCOL (HEALTHYLAX) 3350 17 GM PACKET PO SCH (11:51)
[2021-05-17] MEDS: ENOXAPARIN NA (PORCINE) 40 MG/0.4 ML DISP.SYRIN SQ SCH (11:51)
[2021-05-17] MEDS: LURASIDONE HCL 40 MG TABLET PO SCH (11:52)
[2021-05-17] MEDS: NICOTINE 14 MG/24 HOURS TOPICAL PATCH TD SCH (11:52)
[2021-05-17] MEDS: AZITHROMYCIN IVPB 250 MG in DEXTROSE 5%-WATER - 250 ML IVPB SCH (11:54)
[2021-05-17] MEDS: BUDESONIDE/FORMETEROL FUMARATE 160/4.5 mcg INHALER IH SCH ×2 (11:55→21:37)
[2021-05-17 14:54] LABS: ANISOCYTOSIS 1+; MACROCYTOSIS 0; PLATELET ESTIMATE NORMAL
[2021-05-17] MEDS ORDERED: methylPREDNISolone NA SUCC 40 MG/1 ML VIAL IVPUSH SCH (15:15)
[2021-05-17] MEDS ORDERED: PT OWN MED DRAWER 7, Y5N ONE (21:22)
[2021-05-17] MEDS: DOCUSATE SODIUM 100 MG CAPSULE (FP) PO SCH (21:37)
[2021-05-17] MEDS: MONTELUKAST NA 5 MG TAB.CHEW PO SCH (21:37)
[2021-05-18] MEDS: methaDONE HCL 40 MG DISPERSABLE TABLET PO SCH (05:35)
[2021-05-18] MEDS: ALBUTEROL SO4 2.5/IPRATROPIUM 0.5 INH SOL 3 ML VIAL.NEB. NEB SCH ×4 (07:44→20:50)
[2021-05-18] MEDS ORDERED: PT OWN MED DRAWER 7, Y5N ONE ×2 (09:33→21:20)
[2021-05-18] MEDS: NICOTINE 14 MG/24 HOURS TOPICAL PATCH TD SCH (09:56)
[2021-05-18] MEDS: LURASIDONE HCL 40 MG TABLET PO SCH (09:56)
[2021-05-18] MEDS: DULoxetine HCL 30 MG CAPSULE.DR PO SCH (09:56)
[2021-05-18] MEDS: ENOXAPARIN NA (PORCINE) 40 MG/0.4 ML DISP.SYRIN SQ SCH (09:56)
[2021-05-18] MEDS: guaiFENesin 200 MG/10 ML 10 ML UNIT-DOSE CUPS PO PRN (09:56)
[2021-05-18] MEDS: BUDESONIDE/FORMETEROL FUMARATE 160/4.5 mcg INHALER IH SCH ×2 (09:57→21:35)
[2021-05-18] MEDS: POLYETHYLENE GLYCOL (HEALTHYLAX) 3350 17 GM PACKET PO SCH (09:57)
[2021-05-18] MEDS ORDERED: methylPREDNISolone NA SUCC 40 MG/1 ML VIAL IVPUSH SCH (10:00)
[2021-05-18 10:29] LABS: BASO % 0.2 % (0-2.0); EOS % 0.6 % (0-4.5); HEMATOCRIT 51.3 % (35.4-49); HEMOGLOBIN 16.9 GM/dL (11.7-16.9); LYMPH % 20.7 % (8-40); MCH 30.8 pg (25.7-33.7); MEAN CELL VOLUME 93.4 fl (80-96); MEAN PLT VOLUME 7.1 fl (7.5-11.1); MONO % 7.3 % (3.8-10.2); NEUT % 71.2 % (42.8-82.8); PLATELET COUNT 372 10^3/uL (134-434); RBC 5.49 M/mm3 (4.00-5.60); RDW 14.4 % (11.9-15.9); WHITE BLOOD COUNT 11.5 K/mm3 (4.0-10.0)
[2021-05-18] MEDS: DOCUSATE SODIUM 100 MG CAPSULE (FP) PO SCH (21:34)
[2021-05-18] MEDS: MONTELUKAST NA 5 MG TAB.CHEW PO SCH (21:35)
[2021-05-19 05:33] VITALS: TEMP 98.2
[2021-05-19] MEDS: methaDONE HCL 40 MG DISPERSABLE TABLET PO SCH (06:06)
[2021-05-19] MEDS: ALBUTEROL SO4 2.5/IPRATROPIUM 0.5 INH SOL 3 ML VIAL.NEB. NEB SCH ×3 (07:54→15:24)
[2021-05-19] MEDS ORDERED: PT OWN MED DRAWER 7, Y5N ONE (09:06)
[2021-05-19] MEDS ORDERED: predniSONE 20 MG TABLET (UD) PO SCH (10:00)
[2021-05-19] MEDS: DULoxetine HCL 30 MG CAPSULE.DR PO SCH (10:02)
[2021-05-19] MEDS: ENOXAPARIN NA (PORCINE) 40 MG/0.4 ML DISP.SYRIN SQ SCH (10:03)
[2021-05-19] MEDS: guaiFENesin 200 MG/10 ML 10 ML UNIT-DOSE CUPS PO PRN (10:03)
[2021-05-19] MEDS: NICOTINE 14 MG/24 HOURS TOPICAL PATCH TD SCH (10:03)
[2021-05-19] MEDS: LURASIDONE HCL 40 MG TABLET PO SCH (10:03)
[2021-05-19] MEDS: POLYETHYLENE GLYCOL (HEALTHYLAX) 3350 17 GM PACKET PO SCH (10:03)
[2021-05-19] MEDS: BUDESONIDE/FORMETEROL FUMARATE 160/4.5 mcg INHALER IH SCH (10:06)
[2021-05-19 13:46] VITALS: BP 118/70; PULSE 90
== END 2021-05-19 18:42 | disposition home or self-care (01) | DRG 190 ==
LOC: JER 03:25 → JERBED 05:22 → J6S 14:24
PROVIDERS: ATTEND Nurse Practitioner Acute Care
DX: J44.1 Chronic obstructive pulmonary disease with (acute) exacerbation (principal); J18.9 Pneumonia, unspecified organism; F11.20 Opioid dependence, uncomplicated; B19.10 Unspecified viral hepatitis B without hepatic coma; J44.0 Chronic obstructive pulmonary disease with (acute) lower respiratory infection; F41.9 Anxiety disorder, unspecified; F32.A Depression, unspecified; L40.9 Psoriasis, unspecified; R25.1 Tremor, unspecified; Z99.81 Dependence on supplemental oxygen
CPT/HCPCS: 36415; 71045-TC-FY; 71250-TC; 80053; 80061; 81003; 83036; 83735; 84100; 84484; 85025; 87040; 87804; 87899; 93005; 93010; 94640; 94761; 99285-25; C9803; J0131; U0003; U0005

== ENCOUNTER 2021-07-16 20:10 | Inpatient (IN) | payer OTHER ==
[2021-07-16] MEDS ORDERED: DEXAMETHASONE SOD PHOSPHATE 10 MG/1 ML VIAL ONE (20:37)
[2021-07-16] MEDS ORDERED: ALBUTEROL SO4 2.5/IPRATROPIUM 0.5 INH SOL 3 ML VIAL.NEB. NEB ONE ×3 (20:37→20:58)
[2021-07-16] MEDS ORDERED: DEXAMETHASONE SOD PHOSPHATE 10 MG/1 ML VIAL IVPUSH ONE (20:54)
[2021-07-16] MEDS ORDERED: AZITHROMYCIN IVPB 500 MG in DEXTROSE 5%-WATER - 250 ML IVPB ONE (20:54)
[2021-07-16] MEDS ORDERED: CEFTRIAXONE 1,000 MG in DEXTROSE 5%-WATER - 50 ML IVPB ONE (20:59)
[2021-07-16] MEDS ORDERED: AZITHROMYCIN IVPB 500 MG/250 ML BAG IVPB ONE (21:00)
[2021-07-16] MEDS ORDERED: CEFTRIAXONE 1 GM/50 ML BAG ONE (21:44)
[2021-07-16 22:57] LABS: BASO % 0.7 % (0-2.0); EOS % 0.9 % (0-4.5); HEMATOCRIT 44.9 % (35.4-49); HEMOGLOBIN 14.8 GM/dL (11.7-16.9); LYMPH % 3.6 % (8-40); MCH 30.4 pg (25.7-33.7); MEAN CELL VOLUME 92.2 fl (80-96); MEAN PLT VOLUME 6.9 fl (7.5-11.1); MONO % 3.6 % (3.8-10.2); NEUT % 91.2 % (42.8-82.8); PLATELET COUNT 265 10^3/uL (134-434); RBC 4.88 M/mm3 (4.00-5.60); RDW 14.8 % (11.9-15.9); WHITE BLOOD COUNT 15.2 K/mm3 (4.0-10.0)
[2021-07-16 22:58] LABS: VENOUS BASE EXCESS 2.6 mmol/L (-2-2); VENOUS O2 SATURATION 87.7 % (70-80); VENOUS PCO2 63.1 mmHg (38-52); VENOUS PH 7.309 (7.310-7.410)
[2021-07-16 23:04] LABS: INR 1.15 (0.83-1.09); PROTHROMBIN TIME (PATIENT) 13.3 SEC (9.7-13.0)
[2021-07-16 23:07] LABS: ACTIVATED PTT 33.4 SECONDS (25.2-36.5)
[2021-07-16 23:16] LABS: CHLORIDE 100 mmol/L (98-107); SODIUM 138 mmol/L (136-145)
[2021-07-16 23:18] LABS: CALCIUM 8.1 mg/dL (8.5-10.1)
[2021-07-16 23:19] LABS: ALBUMIN 3.5 g/dl (3.4-5.0); ANION GAP 5 MMOL/L (8-16); BLOOD UREA NITROGEN 7.4 mg/dL (7-18); CO2 33 mmol/L (21-32); GLUCOSE,RANDOM 166 mg/dL (74-106); MAGNESIUM 1.8 mg/dL (1.8-2.4)
[2021-07-16 23:22] LABS: CREATININE 0.6 mg/dL (0.55-1.3); PHOSPHOROUS 3.2 mg/dL (2.5-4.9); SGOT/AST 11 U/L (15-37); SGPT/ALT 19 U/L (13-61)
[2021-07-16 23:23] LABS: BILIRUBIN,TOTAL 0.3 mg/dL (0.2-1); TOT PROT 6.4 g/dl (6.4-8.2)
[2021-07-16 23:24] LABS: ALK PHOS 89 U/L (45-117)
[2021-07-16 23:44] LABS: ANISOCYTOSIS 0; MACROCYTOSIS 0
[2021-07-17] MEDS ORDERED: BUDESONIDE/FORMETEROL FUMARATE 80/4.5 mcg INHALER IH ONE (01:44)
[2021-07-17] MEDS ORDERED: ALBUTEROL SO4 HFA INHALER IH PRN (01:44)
[2021-07-17 04:42] VITALS: BMI 26.4
[2021-07-17] MEDS ORDERED: ALBUTEROL SO4 2.5/IPRATROPIUM 0.5 INH SOL 3 ML VIAL.NEB. NEB SCH (08:00)
[2021-07-17 09:16] LABS: HEMATOCRIT 46.5 % (35.4-49); HEMOGLOBIN 15.1 GM/dL (11.7-16.9); MCH 30.4 pg (25.7-33.7); MCHC 32.5 g/dl (32.0-35.9); MEAN CELL VOLUME 93.3 fl (80-96); MEAN PLT VOLUME 7.7 fl (7.5-11.1); PLATELET COUNT 296 10^3/uL (134-434); RBC 4.98 M/mm3 (4.00-5.60); RDW 14.6 % (11.9-15.9); WHITE BLOOD COUNT 13.7 K/mm3 (4.0-10.0)
[2021-07-17] MEDS: ENOXAPARIN NA (PORCINE) 40 MG/0.4 ML DISP.SYRIN SQ SCH (09:33)
[2021-07-17] MEDS: DULoxetine HCL 30 MG CAPSULE.DR PO SCH (09:36)
[2021-07-17] MEDS ORDERED: PATIENT'S OWN MEDICATION (NON-FORMULARY) (Linaclotide [Linzess] 72 MCG Capsule) PO SCH (10:00)
[2021-07-17] MEDS ORDERED: methaDONE HCL 40 MG DISPERSABLE TABLET PO ONE (10:00)
[2021-07-17] MEDS ORDERED: BUDESONIDE/FORMETEROL FUMARATE 80/4.5 mcg INHALER IH SCH (10:00)
[2021-07-17] MEDS ORDERED: FLUTICASONE/UMECLIDIN/VILANTER(200-62.5-25 TRELEGY ELLIPTA) INAHLER IH SCH (10:00)
[2021-07-17] MEDS ORDERED: methylPREDNISolone NA SUCC 40 MG/1 ML VIAL IVPUSH SCH (10:00)
[2021-07-17 10:12] LABS: ALBUMIN 3.6 g/dl (3.4-5.0); BLOOD UREA NITROGEN 7.3 mg/dL (7-18); CALCIUM 9.2 mg/dL (8.5-10.1); MAGNESIUM 2.1 mg/dL (1.8-2.4)
[2021-07-17 10:15] LABS: CREATININE 0.6 mg/dL (0.55-1.3)
[2021-07-17 10:19] LABS: TOT PROT 6.5 g/dl (6.4-8.2)
[2021-07-17 10:21] LABS: PHOSPHOROUS 3.5 mg/dL (2.5-4.9)
[2021-07-17 10:50] LABS: BILIRUBIN,TOTAL 0.4 mg/dL (0.2-1)
[2021-07-17] MEDS ORDERED: TIOTROPIUM BROMIDE 2.5 MCG (SPIRIVA) RESPIMAT INHALER IH SCH ×3 (11:00→18:02)
[2021-07-17] MEDS: HYDROCORTISONE 1% TOPICAL CREAM 30 GM TUBE TP SCH ×2 (11:23→21:49)
[2021-07-17] MEDS: NICOTINE 14 MG/24 HOURS TOPICAL PATCH TD SCH (11:23)
[2021-07-17] MEDS: ALBUTEROL SO4 0.083% IH SOL 2.5 MG/3 ML VIAL.NEB. NEB SCH ×3 (11:50→19:34)
[2021-07-17] MEDS ORDERED: DEXTROSE 5%-WATER - 50 ML IVPB ONE (16:50)
[2021-07-17] MEDS ORDERED: AZTREONAM 1 GM VIAL (RESTRICTED TO ID) ONE (16:50)
[2021-07-17] MEDS: methylPREDNISolone NA SUCC 40 MG/1 ML VIAL IVPUSH SCH ×2 (16:57→20:12)
[2021-07-17 17:21] LABS: ARTERIAL BLD GAS O2 SATURATION 85.7 % (95-98); ARTERIAL BLOOD GAS BASE EXCESS 6.5 mmol/L (-2-2); ARTERIAL BLOOD GAS PO2 54.3 mmHg (80-100); ARTERIAL BLOOD GAS pH 7.348 (7.350-7.450)
[2021-07-17 17:24] LABS: ALLENS TEST POSITIVE
[2021-07-17] MEDS: AZTREONAM 1 GM in DEXTROSE 5%-WATER - 50 ML IVPB SCH (17:31)
[2021-07-17] MEDS ORDERED: AZTREONAM 2 GM in DEXTROSE 5%-WATER 100 ML IVPB SCH (18:00)
[2021-07-17] MEDS: LURASIDONE HCL 40 MG TABLET PO SCH (21:48)
[2021-07-17] MEDS: ATORVASTATIN CA 40 MG TABLET (FP) PO SCH (21:48)
[2021-07-17] MEDS ORDERED: BUDESONIDE/FORMETEROL FUMARATE 160/4.5 mcg INHALER IH SCH (22:00)
[2021-07-18] MEDS ORDERED: AZTREONAM 1 GM VIAL (RESTRICTED TO ID) ONE ×3 (01:48→17:14)
[2021-07-18] MEDS ORDERED: DEXTROSE 5%-WATER - 50 ML IVPB ONE ×3 (01:49→17:14)
[2021-07-18] MEDS: FLUTICASONE/UMECLIDIN/VILANTER(200-62.5-25 TRELEGY ELLIPTA) INAHLER IH SCH ×2 (02:00→10:35)
[2021-07-18] MEDS: AZTREONAM 1 GM in DEXTROSE 5%-WATER - 50 ML IVPB SCH ×3 (02:00→17:48)
[2021-07-18] MEDS: methylPREDNISolone NA SUCC 40 MG/1 ML VIAL IVPUSH SCH ×4 (02:00→21:31)
[2021-07-18] MEDS: methaDONE HCL 40 MG DISPERSABLE TABLET PO SCH (05:44)
[2021-07-18] MEDS ORDERED: methaDONE HCL 40 MG DISPERSABLE TABLET PO SCH (06:00)
[2021-07-18] MEDS ORDERED: methaDONE HCL 10 MG TABLET (FOR DETOX USE ONLY) PO ONE (06:00)
[2021-07-18 07:35] LABS: HEMATOCRIT 43.7 % (35.4-49); HEMOGLOBIN 13.8 GM/dL (11.7-16.9); MCHC 31.6 g/dl (32.0-35.9); MEAN CELL VOLUME 94.9 fl (80-96); MEAN PLT VOLUME 7.8 fl (7.5-11.1); PLATELET COUNT 298 10^3/uL (134-434); RBC 4.61 M/mm3 (4.00-5.60); RDW 14.9 % (11.9-15.9); WHITE BLOOD COUNT 16.9 K/mm3 (4.0-10.0)
[2021-07-18] MEDS: ALBUTEROL SO4 0.083% IH SOL 2.5 MG/3 ML VIAL.NEB. NEB SCH ×4 (07:42→20:30)
[2021-07-18 07:49] LABS: BLOOD UREA NITROGEN 10.4 mg/dL (7-18); CALCIUM 9.6 mg/dL (8.5-10.1)
[2021-07-18 07:50] LABS: ALBUMIN 3.2 g/dl (3.4-5.0); MAGNESIUM 2.2 mg/dL (1.8-2.4)
[2021-07-18 07:52] LABS: PHOSPHOROUS 3.9 mg/dL (2.5-4.9)
[2021-07-18 07:53] LABS: CREATININE 0.6 mg/dL (0.55-1.3)
[2021-07-18 07:54] LABS: BILIRUBIN,TOTAL 0.4 mg/dL (0.2-1)
[2021-07-18] MEDS: DULoxetine HCL 30 MG CAPSULE.DR PO SCH (10:34)
[2021-07-18] MEDS: ENOXAPARIN NA (PORCINE) 40 MG/0.4 ML DISP.SYRIN SQ SCH (10:34)
[2021-07-18] MEDS: NICOTINE 14 MG/24 HOURS TOPICAL PATCH TD SCH (10:35)
[2021-07-18] MEDS: HYDROCORTISONE 1% TOPICAL CREAM 30 GM TUBE TP SCH ×2 (10:48→21:44)
[2021-07-18 11:07] LABS: ANISOCYTOSIS 2+; MACROCYTOSIS 1+; PLATELET ESTIMATE NORMAL
[2021-07-18 11:53] LABS: ARTERIAL BLD GAS O2 SATURATION 98.5 % (95-98); ARTERIAL BLOOD GAS BASE EXCESS 12.8 mmol/L (-2-2); ARTERIAL BLOOD GAS PO2 132.2 mmHg (80-100); ARTERIAL BLOOD GAS pH 7.389 (7.350-7.450)
[2021-07-18 11:54] LABS: ALLENS TEST POSITIVE
[2021-07-18 11:55] LABS: VENT MODE BIPAP; VENT RATE 16
[2021-07-18] MEDS: LURASIDONE HCL 40 MG TABLET PO SCH (21:31)
[2021-07-18] MEDS: ATORVASTATIN CA 40 MG TABLET (FP) PO SCH (21:31)
[2021-07-19] MEDS ORDERED: DEXTROSE 5%-WATER - 50 ML IVPB ONE ×2 (02:14→10:18)
[2021-07-19] MEDS ORDERED: AZTREONAM 1 GM VIAL (RESTRICTED TO ID) ONE ×2 (02:14→10:18)
[2021-07-19] MEDS: AZTREONAM 1 GM in DEXTROSE 5%-WATER - 50 ML IVPB SCH ×2 (02:17→10:56)
[2021-07-19] MEDS: methylPREDNISolone NA SUCC 40 MG/1 ML VIAL IVPUSH SCH ×2 (03:35→10:56)
[2021-07-19] MEDS: methaDONE HCL 40 MG DISPERSABLE TABLET PO SCH (05:21)
[2021-07-19] MEDS: ALBUTEROL SO4 0.083% IH SOL 2.5 MG/3 ML VIAL.NEB. NEB SCH (08:22)
[2021-07-19] MEDS: HYDROCORTISONE 1% TOPICAL CREAM 30 GM TUBE TP SCH (10:46)
[2021-07-19] MEDS: DULoxetine HCL 30 MG CAPSULE.DR PO SCH (10:46)
[2021-07-19] MEDS: ENOXAPARIN NA (PORCINE) 40 MG/0.4 ML DISP.SYRIN SQ SCH (10:46)
[2021-07-19] MEDS: NICOTINE 14 MG/24 HOURS TOPICAL PATCH TD SCH (10:49)
[2021-07-19] MEDS: FLUTICASONE/UMECLIDIN/VILANTER(200-62.5-25 TRELEGY ELLIPTA) INAHLER IH SCH (10:50)
[2021-07-19 11:03] VITALS: BP 120/75; PULSE 75; TEMP 98.2
[2021-07-19 11:12] LABS: HEMATOCRIT 28.5 % (35.4-49); HEMOGLOBIN 8.5 GM/dL (11.7-16.9); MCH 28.3 pg (25.7-33.7); MCHC 29.7 g/dl (32.0-35.9); MEAN CELL VOLUME 95.6 fl (80-96); MEAN PLT VOLUME 9.8 fl (7.5-11.1); PLATELET COUNT 223 10^3/uL (134-434); RBC 2.98 M/mm3 (4.00-5.60); RDW 18.3 % (11.9-15.9); WHITE BLOOD COUNT 26.4 K/mm3 (4.0-10.0)
[2021-07-19 12:07] LABS: ANISOCYTOSIS 2+; MACROCYTOSIS 0; OVALOCYTE 2+; PLATELET ESTIMATE NORMAL
[2021-07-19 13:00] LABS: ALBUMIN 3.4 g/dl (3.4-5.0); BLOOD UREA NITROGEN 12.9 mg/dL (7-18)
[2021-07-19 13:03] LABS: CREATININE 0.5 mg/dL (0.55-1.3)
[2021-07-19 13:05] LABS: BILIRUBIN,TOTAL 0.3 mg/dL (0.2-1); TOT PROT 6.3 g/dl (6.4-8.2)
== END 2021-07-19 13:51 | disposition left against medical advice (07) | DRG 189 ==
LOC: JER 20:10 → JERBED 23:17 → OBSVTOIN 07-17 01:42 → J4S 07-17 03:53
PROVIDERS: ADMIT Internal Medicine
DX: J96.21 Acute and chronic respiratory failure with hypoxia (principal); J44.1 Chronic obstructive pulmonary disease with (acute) exacerbation; F11.20 Opioid dependence, uncomplicated; F17.210 Nicotine dependence, cigarettes, uncomplicated; I10 Essential (primary) hypertension; B19.20 Unspecified viral hepatitis C without hepatic coma; E78.5 Hyperlipidemia, unspecified; K59.00 Constipation, unspecified; F41.8 Other specified anxiety disorders; Z88.0 Allergy status to penicillin; Z99.81 Dependence on supplemental oxygen
CPT/HCPCS: 36415; 36600; 71045-TC-FY; 80053; 82550; 82803; 82962; 83735; 83880; 84100; 84484; 85025; 85027; 85610; 85730; 87070; 87205; 93005; 93010; 94640; 94660; 97116-GP; 97161-GP; 99285-25; C9803; G0378; J1100; U0003; U0005

== ENCOUNTER 2022-01-28 09:40 | Inpatient (IN) | payer OTHER ==
[2022-01-28] MEDS ORDERED: LACTATED RINGERS SOLUTION 1000 ML INFUS.BAG IV ONE (10:24)
[2022-01-28] MEDS ORDERED: CEFEPIME HCL/D5W 2 GM/50 ML BAG IVPB ONE (10:24)
[2022-01-28] MEDS ORDERED: VANCOMYCIN 1 GM in D5W (PRE-DOCKED) 1,000 MG/250 ML IVPB ONE (10:24)
[2022-01-28] MEDS ORDERED: VANCOMYCIN/WATER FOR INJ (PEG) 1,000 MG/200 ML BAG IVPB ONE (10:44)
[2022-01-28] MEDS ORDERED: CEFEPIME 2 GM/100 ML BAG IVPB ONE (10:44)
[2022-01-28 10:48] LABS: BASO % 1.2 % (0-2.0); EOS % 1.3 % (0-4.5); HEMATOCRIT 45.2 % (35.4-49); HEMOGLOBIN 15.2 GM/dL (11.7-16.9); LYMPH % 11.7 % (8-40); MCH 30.3 pg (25.7-33.7); MCHC 33.6 g/dl (32.0-35.9); MEAN CELL VOLUME 90.2 fl (80-96); MEAN PLT VOLUME 6.6 fl (7.5-11.1); MONO % 6.5 % (3.8-10.2); NEUT % 79.3 % (42.8-82.8); PLATELET COUNT 483 10^3/uL (134-434); RBC 5.01 M/mm3 (4.00-5.60); RDW 13.6 % (11.9-15.9); WHITE BLOOD COUNT 13.2 K/mm3 (4.0-10.0)
[2022-01-28 11:07] LABS: CHLORIDE 95 mmol/L (98-107); SODIUM 137 mmol/L (136-145)
[2022-01-28 11:09] LABS: ALBUMIN 3.4 g/dl (3.4-5.0); CALCIUM 9.3 mg/dL (8.5-10.1); GLUCOSE,RANDOM 109 mg/dL (74-106)
[2022-01-28 11:10] LABS: ANION GAP 6 MMOL/L (8-16); CO2 36 mmol/L (21-32); MAGNESIUM 2.1 mg/dL (1.8-2.4)
[2022-01-28 11:13] LABS: CREATININE 0.6 mg/dL (0.55-1.3); SGOT/AST 20 U/L (15-37); SGPT/ALT 25 U/L (13-61)
[2022-01-28 11:14] LABS: BILIRUBIN,TOTAL 0.5 mg/dL (0.2-1)
[2022-01-28 11:15] LABS: ALK PHOS 119 U/L (45-117); TOT PROT 6.7 g/dl (6.4-8.2)
[2022-01-28 11:28] LABS: BLOOD UREA NITROGEN 2.8 mg/dL (7-18)
[2022-01-28] MEDS ORDERED: ACETAMINOPHEN 325 MG TABLET (FP) PO ONE (11:45)
[2022-01-28] MEDS ORDERED: ACETAMINOPHEN 325 MG TABLET (FP) ONE (11:49)
[2022-01-28 14:41] VITALS: BMI 27.7
[2022-01-28] MEDS ORDERED: ALBUTEROL SO4 HFA INHALER IH PRN (14:43)
[2022-01-28] MEDS: ACETAMINOPHEN 325 MG TABLET (FP) PO PRN ×2 (18:00→21:32)
[2022-01-28] MEDS: CEFEPIME 2 GM in DEXTROSE 5%-WATER 100 ML IVPB SCH (18:42)
[2022-01-28] MEDS: VANCOMYCIN/WATER 1250 MG 1,250 MG/250 ML BAG IVPB SCH (20:28)
[2022-01-28] MEDS: BACITRACIN 15 GM TUBE TOPICAL OINTMENT TP SCH (21:32)
[2022-01-28] MEDS: ATORVASTATIN CA 40 MG TABLET (FP) PO SCH (21:32)
[2022-01-28] MEDS ORDERED: VANCOMYCIN 1 GM in D5W (PRE-DOCKED) 1,000 MG/250 ML IVPB SCH (22:00)
[2022-01-28] MEDS ORDERED: CEFEPIME 1 GM in DEXTROSE 5%-WATER 100 ML IVPB SCH (22:00)
[2022-01-29] MEDS: CEFEPIME 2 GM in DEXTROSE 5%-WATER 100 ML IVPB SCH ×3 (02:02→17:39)
[2022-01-29] MEDS: ACETAMINOPHEN 325 MG TABLET (FP) PO PRN ×3 (02:03→20:01)
[2022-01-29 08:40] LABS: BASO % 0.9 % (0-2.0); EOS % 2.5 % (0-4.5); HEMATOCRIT 38.6 % (35.4-49); HEMOGLOBIN 13.2 GM/dL (11.7-16.9); LYMPH % 16.4 % (8-40); MCH 30.8 pg (25.7-33.7); MCHC 34.3 g/dl (32.0-35.9); MEAN CELL VOLUME 89.7 fl (80-96); MEAN PLT VOLUME 6.6 fl (7.5-11.1); MONO % 6.4 % (3.8-10.2); NEUT % 73.8 % (42.8-82.8); PLATELET COUNT 405 10^3/uL (134-434); RDW 13.7 % (11.9-15.9); WHITE BLOOD COUNT 8.7 K/mm3 (4.0-10.0)
[2022-01-29 09:13] LABS: BLOOD UREA NITROGEN 6.2 mg/dL (7-18); CALCIUM 8.6 mg/dL (8.5-10.1); MAGNESIUM 2.1 mg/dL (1.8-2.4)
[2022-01-29 09:17] LABS: CREATININE 0.4 mg/dL (0.55-1.3); PHOSPHOROUS 2.8 mg/dL (2.5-4.9)
[2022-01-29 09:18] LABS: ALBUMIN 2.6 g/dl (3.4-5.0); BILIRUBIN,TOTAL 0.9 mg/dL (0.2-1); TOT PROT 5.2 g/dl (6.4-8.2)
[2022-01-29] MEDS: VANCOMYCIN/WATER 1250 MG 1,250 MG/250 ML BAG IVPB SCH ×2 (10:31→20:00)
[2022-01-29] MEDS: ENOXAPARIN NA (PORCINE) 40 MG/0.4 ML DISP.SYRIN SQ SCH (10:32)
[2022-01-29] MEDS: BACITRACIN 15 GM TUBE TOPICAL OINTMENT TP SCH ×2 (10:32→21:38)
[2022-01-29] MEDS: FLUTICASONE/UMECLIDIN/VILANTER(200-62.5-25 TRELEGY ELLIPTA) INAHLER IH SCH (10:32)
[2022-01-29] MEDS: DULoxetine HCL 30 MG CAPSULE.DR PO SCH (10:32)
[2022-01-29] MEDS: ATORVASTATIN CA 40 MG TABLET (FP) PO SCH (21:38)
[2022-01-30] MEDS: CEFEPIME 2 GM in DEXTROSE 5%-WATER 100 ML IVPB SCH ×3 (01:33→17:50)
[2022-01-30 07:37] LABS: CALCIUM 8.6 mg/dL (8.5-10.1)
[2022-01-30 07:38] LABS: ALBUMIN 2.8 g/dl (3.4-5.0); BLOOD UREA NITROGEN 4.7 mg/dL (7-18)
[2022-01-30 07:39] LABS: MAGNESIUM 1.9 mg/dL (1.8-2.4)
[2022-01-30 07:40] LABS: PHOSPHOROUS 2.6 mg/dL (2.5-4.9)
[2022-01-30 07:41] LABS: BILIRUBIN,TOTAL 0.5 mg/dL (0.2-1); CREATININE 0.4 mg/dL (0.55-1.3)
[2022-01-30 07:45] LABS: TOT PROT 5.7 g/dl (6.4-8.2)
[2022-01-30 08:07] LABS: BASO % 0.6 % (0-2.0); EOS % 2.5 % (0-4.5); HEMATOCRIT 40.7 % (35.4-49); HEMOGLOBIN 13.8 GM/dL (11.7-16.9); LYMPH % 17.3 % (8-40); MCH 30.3 pg (25.7-33.7); MEAN CELL VOLUME 89.2 fl (80-96); MEAN PLT VOLUME 6.9 fl (7.5-11.1); MONO % 6.5 % (3.8-10.2); NEUT % 73.1 % (42.8-82.8); PLATELET COUNT 417 10^3/uL (134-434); RBC 4.56 M/mm3 (4.00-5.60); RDW 13.5 % (11.9-15.9)
[2022-01-30] MEDS: ENOXAPARIN NA (PORCINE) 40 MG/0.4 ML DISP.SYRIN SQ SCH (09:18)
[2022-01-30] MEDS: FLUTICASONE/UMECLIDIN/VILANTER(200-62.5-25 TRELEGY ELLIPTA) INAHLER IH SCH (09:18)
[2022-01-30] MEDS: DULoxetine HCL 30 MG CAPSULE.DR PO SCH (09:18)
[2022-01-30] MEDS: ACETAMINOPHEN 325 MG TABLET (FP) PO PRN ×2 (09:18→18:04)
[2022-01-30] MEDS: BACITRACIN 15 GM TUBE TOPICAL OINTMENT TP SCH ×2 (09:19→22:08)
[2022-01-30] MEDS: VANCOMYCIN/WATER 1250 MG 1,250 MG/250 ML BAG IVPB SCH ×2 (16:03→22:07)
[2022-01-30] MEDS: ATORVASTATIN CA 40 MG TABLET (FP) PO SCH (22:07)
[2022-01-31] MEDS: CEFEPIME 2 GM in DEXTROSE 5%-WATER 100 ML IVPB SCH ×3 (01:36→17:30)
[2022-01-31 08:57] LABS: HEMATOCRIT 41.6 % (35.4-49); HEMOGLOBIN 14.1 GM/dL (11.7-16.9); MCH 30.3 pg (25.7-33.7); MCHC 33.8 g/dl (32.0-35.9); MEAN CELL VOLUME 89.8 fl (80-96); PLATELET COUNT 462 10^3/uL (134-434); RBC 4.64 M/mm3 (4.00-5.60); RDW 13.5 % (11.9-15.9); WHITE BLOOD COUNT 8.4 K/mm3 (4.0-10.0)
[2022-01-31 09:25] LABS: CALCIUM 8.9 mg/dL (8.5-10.1)
[2022-01-31 09:26] LABS: BLOOD UREA NITROGEN 4.1 mg/dL (7-18); MAGNESIUM 1.9 mg/dL (1.8-2.4)
[2022-01-31 09:29] LABS: CREATININE 0.4 mg/dL (0.55-1.3); PHOSPHOROUS 2.9 mg/dL (2.5-4.9)
[2022-01-31] MEDS: DULoxetine HCL 30 MG CAPSULE.DR PO SCH (11:21)
[2022-01-31] MEDS: BACITRACIN 15 GM TUBE TOPICAL OINTMENT TP SCH ×2 (11:22→22:22)
[2022-01-31] MEDS: ENOXAPARIN NA (PORCINE) 40 MG/0.4 ML DISP.SYRIN SQ SCH (11:22)
[2022-01-31] MEDS: FLUTICASONE/UMECLIDIN/VILANTER(200-62.5-25 TRELEGY ELLIPTA) INAHLER IH SCH (11:23)
[2022-01-31] MEDS: VANCOMYCIN/WATER 1250 MG 1,250 MG/250 ML BAG IVPB SCH ×2 (12:33→21:30)
[2022-01-31] MEDS: ACETAMINOPHEN 325 MG TABLET (FP) PO PRN (18:50)
[2022-01-31] MEDS: ATORVASTATIN CA 40 MG TABLET (FP) PO SCH (22:22)
[2022-02-01] MEDS: CEFEPIME 2 GM in DEXTROSE 5%-WATER 100 ML IVPB SCH ×3 (02:22→17:42)
[2022-02-01] MEDS: VANCOMYCIN/WATER 1250 MG 1,250 MG/250 ML BAG IVPB SCH ×2 (09:14→21:44)
[2022-02-01] MEDS: FLUTICASONE/UMECLIDIN/VILANTER(200-62.5-25 TRELEGY ELLIPTA) INAHLER IH SCH (09:15)
[2022-02-01] MEDS: DULoxetine HCL 30 MG CAPSULE.DR PO SCH (09:15)
[2022-02-01] MEDS: BACITRACIN 15 GM TUBE TOPICAL OINTMENT TP SCH ×2 (09:15→21:44)
[2022-02-01] MEDS: ENOXAPARIN NA (PORCINE) 40 MG/0.4 ML DISP.SYRIN SQ SCH (09:15)
[2022-02-01 09:32] LABS: BASO % 1.1 % (0-2.0); EOS % 2.6 % (0-4.5); HEMATOCRIT 42.9 % (35.4-49); HEMOGLOBIN 14.2 GM/dL (11.7-16.9); LYMPH % 19.8 % (8-40); MCHC 33.2 g/dl (32.0-35.9); MEAN CELL VOLUME 90.4 fl (80-96); MEAN PLT VOLUME 7.2 fl (7.5-11.1); MONO % 7.5 % (3.8-10.2); PLATELET COUNT 453 10^3/uL (134-434); RBC 4.74 M/mm3 (4.00-5.60); RDW 13.7 % (11.9-15.9); WHITE BLOOD COUNT 8.2 K/mm3 (4.0-10.0)
[2022-02-01 09:50] LABS: ALBUMIN 3.1 g/dl (3.4-5.0); CALCIUM 9.2 mg/dL (8.5-10.1)
[2022-02-01 09:51] LABS: MAGNESIUM 1.9 mg/dL (1.8-2.4)
[2022-02-01 09:53] LABS: CREATININE 0.4 mg/dL (0.55-1.3); PHOSPHOROUS 3.4 mg/dL (2.5-4.9)
[2022-02-01 09:54] LABS: BILIRUBIN,TOTAL 0.6 mg/dL (0.2-1)
[2022-02-01 09:58] LABS: BLOOD UREA NITROGEN 5.3 mg/dL (7-18)
[2022-02-01] MEDS: ACETAMINOPHEN 325 MG TABLET (FP) PO PRN (17:42)
[2022-02-01] MEDS: ATORVASTATIN CA 40 MG TABLET (FP) PO SCH (21:44)
[2022-02-02] MEDS: CEFEPIME 2 GM in DEXTROSE 5%-WATER 100 ML IVPB SCH ×3 (01:47→17:58)
[2022-02-02 08:31] LABS: BASO % 1.4 % (0-2.0); EOS % 2.5 % (0-4.5); HEMATOCRIT 42.7 % (35.4-49); HEMOGLOBIN 14.3 GM/dL (11.7-16.9); LYMPH % 16.2 % (8-40); MCH 30.2 pg (25.7-33.7); MCHC 33.6 g/dl (32.0-35.9); MEAN CELL VOLUME 89.9 fl (80-96); MONO % 6.4 % (3.8-10.2); NEUT % 73.5 % (42.8-82.8); PLATELET COUNT 430 10^3/uL (134-434); RBC 4.75 M/mm3 (4.00-5.60); RDW 13.7 % (11.9-15.9); WHITE BLOOD COUNT 7.9 K/mm3 (4.0-10.0)
[2022-02-02 08:46] LABS: CALCIUM 9.3 mg/dL (8.5-10.1)
[2022-02-02 08:47] LABS: ALBUMIN 3.3 g/dl (3.4-5.0); BLOOD UREA NITROGEN 8.4 mg/dL (7-18)
[2022-02-02 08:50] LABS: CREATININE 0.5 mg/dL (0.55-1.3); PHOSPHOROUS 4.1 mg/dL (2.5-4.9)
[2022-02-02 08:51] LABS: TOT PROT 6.3 g/dl (6.4-8.2)
[2022-02-02 08:52] LABS: BILIRUBIN,TOTAL 0.5 mg/dL (0.2-1)
[2022-02-02] MEDS: BACITRACIN 15 GM TUBE TOPICAL OINTMENT TP SCH ×2 (09:41→21:37)
[2022-02-02] MEDS: VANCOMYCIN/WATER 1250 MG 1,250 MG/250 ML BAG IVPB SCH ×2 (09:41→21:34)
[2022-02-02] MEDS: FLUTICASONE/UMECLIDIN/VILANTER(200-62.5-25 TRELEGY ELLIPTA) INAHLER IH SCH (09:41)
[2022-02-02] MEDS: DULoxetine HCL 30 MG CAPSULE.DR PO SCH (09:42)
[2022-02-02] MEDS: ENOXAPARIN NA (PORCINE) 40 MG/0.4 ML DISP.SYRIN SQ SCH (09:42)
[2022-02-02] MEDS: ACETAMINOPHEN 325 MG TABLET (FP) PO PRN (17:58)
[2022-02-02] MEDS: ATORVASTATIN CA 40 MG TABLET (FP) PO SCH (21:37)
[2022-02-03] MEDS: CEFEPIME 2 GM in DEXTROSE 5%-WATER 100 ML IVPB SCH ×3 (01:53→17:04)
[2022-02-03] MEDS: VANCOMYCIN/WATER 1250 MG 1,250 MG/250 ML BAG IVPB SCH (09:27)
[2022-02-03] MEDS: ENOXAPARIN NA (PORCINE) 40 MG/0.4 ML DISP.SYRIN SQ SCH (09:28)
[2022-02-03] MEDS: DULoxetine HCL 30 MG CAPSULE.DR PO SCH (09:29)
[2022-02-03] MEDS: FLUTICASONE/UMECLIDIN/VILANTER(200-62.5-25 TRELEGY ELLIPTA) INAHLER IH SCH (09:31)
[2022-02-03 10:31] LABS: BASO % 0.9 % (0-2.0); HEMATOCRIT 43.9 % (35.4-49); HEMOGLOBIN 14.5 GM/dL (11.7-16.9); LYMPH % 18.8 % (8-40); MCH 29.9 pg (25.7-33.7); MCHC 32.9 g/dl (32.0-35.9); MEAN PLT VOLUME 7.3 fl (7.5-11.1); MONO % 7.8 % (3.8-10.2); NEUT % 70.5 % (42.8-82.8); PLATELET COUNT 400 10^3/uL (134-434); RBC 4.83 M/mm3 (4.00-5.60); RDW 13.8 % (11.9-15.9); WHITE BLOOD COUNT 7.3 K/mm3 (4.0-10.0)
[2022-02-03 10:41] LABS: CALCIUM 9.1 mg/dL (8.5-10.1)
[2022-02-03 10:42] LABS: ALBUMIN 3.2 g/dl (3.4-5.0)
[2022-02-03 10:45] LABS: CREATININE 0.5 mg/dL (0.55-1.3); PHOSPHOROUS 3.2 mg/dL (2.5-4.9)
[2022-02-03 10:46] LABS: BILIRUBIN,TOTAL 0.6 mg/dL (0.2-1)
[2022-02-03] MEDS: BACITRACIN 15 GM TUBE TOPICAL OINTMENT TP SCH ×2 (16:05→21:27)
[2022-02-03] MEDS: ATORVASTATIN CA 40 MG TABLET (FP) PO SCH (21:28)
[2022-02-03] MEDS: CLINDAMYCIN HCL 150 MG CAPSULE (FP) PO SCH (21:28)
[2022-02-03] MEDS: levoFLOXacin 750 MG TABLET PO SCH (21:29)
[2022-02-04] MEDS: CLINDAMYCIN HCL 150 MG CAPSULE (FP) PO SCH ×3 (00:42→11:57)
[2022-02-04] MEDS: levoFLOXacin 750 MG TABLET PO SCH (06:45)
[2022-02-04 06:47] VITALS: RESP 18; TEMP 97.8
[2022-02-04 09:35] LABS: BASO % 1.2 % (0-2.0); EOS % 2.7 % (0-4.5); HEMATOCRIT 43.4 % (35.4-49); HEMOGLOBIN 14.3 GM/dL (11.7-16.9); LYMPH % 18.2 % (8-40); MCH 30.2 pg (25.7-33.7); MCHC 33.1 g/dl (32.0-35.9); MEAN CELL VOLUME 91.3 fl (80-96); MEAN PLT VOLUME 6.9 fl (7.5-11.1); MONO % 9.5 % (3.8-10.2); NEUT % 68.4 % (42.8-82.8); PLATELET COUNT 377 10^3/uL (134-434); RBC 4.75 M/mm3 (4.00-5.60); RDW 13.9 % (11.9-15.9); WHITE BLOOD COUNT 7.3 K/mm3 (4.0-10.0)
[2022-02-04] MEDS: ENOXAPARIN NA (PORCINE) 40 MG/0.4 ML DISP.SYRIN SQ SCH (10:04)
[2022-02-04] MEDS: DULoxetine HCL 30 MG CAPSULE.DR PO SCH (10:04)
[2022-02-04] MEDS: BACITRACIN 15 GM TUBE TOPICAL OINTMENT TP SCH (10:05)
[2022-02-04] MEDS: FLUTICASONE/UMECLIDIN/VILANTER(200-62.5-25 TRELEGY ELLIPTA) INAHLER IH SCH (10:05)
[2022-02-04 10:14] LABS: CALCIUM 9.7 mg/dL (8.5-10.1)
[2022-02-04 10:15] LABS: ALBUMIN 3.4 g/dl (3.4-5.0); BLOOD UREA NITROGEN 7.6 mg/dL (7-18); MAGNESIUM 1.8 mg/dL (1.8-2.4)
[2022-02-04 10:18] LABS: CREATININE 0.6 mg/dL (0.55-1.3); PHOSPHOROUS 2.9 mg/dL (2.5-4.9)
[2022-02-04 10:19] LABS: BILIRUBIN,TOTAL 0.7 mg/dL (0.2-1); TOT PROT 6.2 g/dl (6.4-8.2)
[2022-02-04 14:50] VITALS: BP 138/91; PULSE 86
[2022-02-05 13:09] LABS: BENZODIAZEPINES, UR Negative ng/mL (Cutoff=200); CANNABINOIDS, URINE Negative ng/mL (Cutoff=20); CODEINE, URINE Negative (Cutoff=300); METHADONE, URINE Negative ng/mL (Cutoff=300); MORPHINE, URINE Positive (.); OPIATES, UR See Final Results ng/mL (Cutoff=300); PHENCYCLIDINE, URINE Negative ng/mL (Cutoff=25)
== END 2022-02-04 15:00 | disposition home or self-care (01) | DRG 603 ==
LOC: JER 09:40 → JERBED 11:39 → J7W 13:05
PROVIDERS: ADMIT Internal Medicine; ATTEND Internal Medicine
DX: L03.011 Cellulitis of right finger (principal); I96 Gangrene, not elsewhere classified; B18.1 Chronic viral hepatitis B without delta-agent; L03.313 Cellulitis of chest wall; L98.498 Non-pressure chronic ulcer of skin of other sites with other specified severity; F41.8 Other specified anxiety disorders; K76.0 Fatty (change of) liver, not elsewhere classified; I45.10 Unspecified right bundle-branch block; F10.10 Alcohol abuse, uncomplicated; I10 Essential (primary) hypertension; J44.9 Chronic obstructive pulmonary disease, unspecified; Z99.81 Dependence on supplemental oxygen; E78.5 Hyperlipidemia, unspecified; B18.2 Chronic viral hepatitis C; F17.200 Nicotine dependence, unspecified, uncomplicated
CPT/HCPCS: 36415; 71045-TC-FY; 73130-TC-RT-FY; 80048; 80053; 80307; 83605; 83735; 84100; 85025; 85027; 85651; 86140; 87040; 93005; 93010; 97116-GP; 97161-GP; 99285-25; C9803-CS; G0480; U0003; U0005

== ENCOUNTER 2022-02-12 13:18 | Emergency (ER) | payer OTHER ==
[2022-02-12 13:45] VITALS: BP 137/86; PULSE 92; RESP 18; TEMP 98.2; BMI 27.7
[2022-02-12] MEDS ORDERED: IBUPROFEN 600 MG TABLET (FP) PO ONE (14:29)
[2022-02-12 15:49] LABS: BF WBC & OTHER NUCLEATED CELLS 990 /mm3
[2022-02-12 18:51] LABS: BODY FLUID MONOCYTE 12 %
[2022-02-12 18:52] LABS: BODY FLUID BASOPHIL 0 %; BODY FLUID MACROPHAGES 4 %; BODYL FLD EOSINOPHIL 0 %
[2022-02-13 11:47] LABS: CRYSTALS,SYNOVIAL FLUID NEGATIVE
== END 2022-02-12 17:25 | disposition home or self-care (01) ==
LOC: JERFT 13:18 → JER 13:18 → JERFT 17:25
PROC: 0S9D4ZZ Drainage of Left Knee Joint, Percutaneous Endoscopic Approach (ICD-10-PCS; principal; 2022-02-12)
DX: M25.562 Pain in left knee (principal)
CPT/HCPCS: 20610; 73562-TC-LT-FY; 87070; 87075; 87205; 89060; 99284-25

== ENCOUNTER 2022-03-29 09:12 | Emergency (ER) | payer OTHER ==
[2022-03-29 09:26] VITALS: BMI 27.2
[2022-03-29] MEDS ORDERED: morphine CARPU-JECT 4 MG/1 ML DISP.SYRIN IVPUSH ONE (09:49)
[2022-03-29] MEDS ORDERED: SODIUM CHLORIDE 0.9% 500 ML INFUS.BAG IV ONE (09:51)
[2022-03-29] MEDS ORDERED: morphine SULFATE 4 MG/ML VIAL ONE (09:56)
[2022-03-29 10:39] LABS: BASO % 0.4 % (0-2.0); HEMATOCRIT 46.3 % (35.4-49); HEMOGLOBIN 15.2 GM/dL (11.7-16.9); LYMPH % 3.7 % (8-40); MCH 29.2 pg (25.7-33.7); MCHC 32.7 g/dl (32.0-35.9); MEAN CELL VOLUME 89.2 fl (80-96); MEAN PLT VOLUME 7.7 fl (7.5-11.1); MONO % 7.9 % (3.8-10.2); PLATELET COUNT 410 10^3/uL (134-434); RBC 5.19 M/mm3 (4.00-5.60); WHITE BLOOD COUNT 14.8 K/mm3 (4.0-10.0)
[2022-03-29 10:44] LABS: INR 1.17 (0.83-1.09); PROTHROMBIN TIME (PATIENT) 13.5 SEC (9.7-13.0)
[2022-03-29 10:46] LABS: ACTIVATED PTT 30.9 SECONDS (25.2-36.5)
[2022-03-29 11:04] LABS: BLOOD UREA NITROGEN 6.7 mg/dL (7-18); CALCIUM 9.7 mg/dL (8.5-10.1); MAGNESIUM 1.9 mg/dL (1.8-2.4)
[2022-03-29 11:08] LABS: CREATININE 0.6 mg/dL (0.55-1.3)
[2022-03-29] MEDS ORDERED: morphine CARPU-JECT 2 MG/1 ML DISP.SYRIN IVPUSH ONE (11:08)
[2022-03-29 11:09] LABS: BILIRUBIN,TOTAL 1.1 mg/dL (0.2-1)
[2022-03-29 15:30] VITALS: BP 168/97; PULSE 94; RESP 22; TEMP 98.2
== END 2022-03-29 15:26 | disposition short-term general hospital (02) ==
LOC: JER 09:12
PROC: 3E033NZ Introduction of Analgesics, Hypnotics, Sedatives into Peripheral Vein, Percutaneous Approach (ICD-10-PCS; principal; 2022-03-29)
PROC: 3E033NZ Introduction of Analgesics, Hypnotics, Sedatives into Peripheral Vein, Percutaneous Approach (ICD-10-PCS; 2022-03-29)
DX: S22.41XA Multiple fractures of ribs, right side, initial encounter for closed fracture (principal); S27.1XXA Traumatic hemothorax, initial encounter; W01.0XXA Fall on same level from slipping, tripping and stumbling without subsequent striking against object, initial encounter
CPT/HCPCS: 36415; 70450-TC; 71250-TC; 72125-TC; 74176-TC; 80053; 83690; 83735; 84484; 85025; 85610; 85730; 86850; 86900; 86901; 93005; 93010; 99285-25; C9803-CS; U0003; U0005

== ENCOUNTER 2022-09-04 10:46 | Emergency (ER) | payer OTHER ==
[2022-09-04 10:59] VITALS: TEMP 98.7; BMI 24.3
[2022-09-04] MEDS ORDERED: ALBUTEROL SO4 2.5/IPRATROPIUM 0.5 INH SOL 3 ML VIAL.NEB. NEB ONE ×3 (12:09→12:58)
[2022-09-04 12:40] LABS: BASO % 0.8 % (0-2.0); EOS % 0.7 % (0-4.5); HEMATOCRIT 40.8 % (35.4-49); HEMOGLOBIN 13.7 GM/dL (11.7-16.9); LYMPH % 8.9 % (8-40); MCH 29.3 pg (25.7-33.7); MCHC 33.7 g/dl (32.0-35.9); MEAN CELL VOLUME 87.1 fl (80-96); MEAN PLT VOLUME 6.6 fl (7.5-11.1); MONO % 8.7 % (3.8-10.2); NEUT % 80.9 % (42.8-82.8); PLATELET COUNT 336 10^3/uL (134-434); RBC 4.68 M/mm3 (4.00-5.60); RDW 13.8 % (11.9-15.9); WHITE BLOOD COUNT 12.3 K/mm3 (4.0-10.0)
[2022-09-04 12:48] LABS: INR 1.06 (0.83-1.09); PROTHROMBIN TIME (PATIENT) 12.3 SEC (9.7-13.0)
[2022-09-04 12:51] LABS: ACTIVATED PTT 32.1 SECONDS (25.2-36.5)
[2022-09-04] MEDS ORDERED: methylPREDNISolone NA SUCC 125 MG/2 ML VIAL IVPUSH ONE (12:57)
[2022-09-04] MEDS ORDERED: methylPREDNISolone NA SUCC 125 MG/2 ML VIAL ONE (13:02)
[2022-09-04 13:09] LABS: CALCIUM 8.8 mg/dL (8.5-10.1)
[2022-09-04 13:10] LABS: ALBUMIN 3.6 g/dl (3.4-5.0); BLOOD UREA NITROGEN 5.5 mg/dL (7-18)
[2022-09-04 13:13] LABS: CREATININE 0.5 mg/dL (0.55-1.3)
[2022-09-04 13:14] LABS: BILIRUBIN,TOTAL 0.7 mg/dL (0.2-1); TOT PROT 6.9 g/dl (6.4-8.2)
[2022-09-04 13:30] VITALS: BP 144/77; PULSE 93; RESP 22
== END 2022-09-04 13:58 | disposition home or self-care (01) ==
LOC: JER 10:46
PROC: 3E0F7GC Introduction of Other Therapeutic Substance into Respiratory Tract, Via Natural or Artificial Opening (ICD-10-PCS; principal; 2022-09-04)
PROC: 3E033GC Introduction of Other Therapeutic Substance into Peripheral Vein, Percutaneous Approach (ICD-10-PCS; 2022-09-04)
DX: S52.125A Nondisplaced fracture of head of left radius, initial encounter for closed fracture (principal); S22.32XA Fracture of one rib, left side, initial encounter for closed fracture; J44.9 Chronic obstructive pulmonary disease, unspecified; W01.0XXA Fall on same level from slipping, tripping and stumbling without subsequent striking against object, initial encounter; Y92.009 Unspecified place in unspecified non-institutional (private) residence as the place of occurrence of the external cause
CPT/HCPCS: 36415; 71250-TC; 73070-TC-LT-FY; 80053; 84484; 85025; 85610; 85730; 93005; 93010; 94640; 96374; 99285-25

== ENCOUNTER 2023-02-13 15:06 | Inpatient (IN) | payer OTHER ==
[2023-02-13 16:12] VITALS: BMI 27.3
[2023-02-13] MEDS ORDERED: MECLIZINE HCL 25 MG TABLET (FP) PO ONE (16:12)
[2023-02-13] MEDS ORDERED: MECLIZINE HCL 25 MG TABLET (FP) ONE (16:33)
[2023-02-13 16:56] LABS: BASO % 1.4 % (0-2.0); EOS % 3.4 % (0-4.5); HEMATOCRIT 42.8 % (35.4-49); HEMOGLOBIN 14.4 GM/dL (11.7-16.9); LYMPH % 21.8 % (8-40); MCH 29.3 pg (25.7-33.7); MCHC 33.6 g/dl (32.0-35.9); MEAN CELL VOLUME 87.2 fl (80-96); MEAN PLT VOLUME 6.8 fl (7.5-11.1); MONO % 8.3 % (3.8-10.2); NEUT % 65.1 % (42.8-82.8); PLATELET COUNT 412 10^3/uL (134-434); RBC 4.92 M/mm3 (4.00-5.60); RDW 13.9 % (11.9-15.9); WHITE BLOOD COUNT 8.8 K/mm3 (4.0-10.0)
[2023-02-13 17:12] LABS: INR 1.04 (0.83-1.09); PROTHROMBIN TIME (PATIENT) 12.1 SEC (9.7-13.0)
[2023-02-13 17:15] LABS: ALBUMIN 3.8 g/dl (3.4-5.0)
[2023-02-13 17:18] LABS: CREATININE 0.6 mg/dL (0.55-1.3)
[2023-02-13 17:19] LABS: TOT PROT 7.2 g/dl (6.4-8.2)
[2023-02-13 17:20] LABS: BILIRUBIN,TOTAL 0.4 mg/dL (0.2-1); BLOOD UREA NITROGEN 7.3 mg/dL (7-18); CALCIUM 9.1 mg/dL (8.5-10.1)
[2023-02-13] MEDS ORDERED: SODIUM CHLORIDE 1,000 ML IV SCH (22:30)
[2023-02-13] MEDS ORDERED: ALBUTEROL SO4 2.5/IPRATROPIUM 0.5 INH SOL 3 ML VIAL.NEB. NEB PRN (22:34)
[2023-02-13] MEDS ORDERED: ALBUTEROL SO4 HFA INHALER IH PRN (22:38)
[2023-02-14] MEDS: BUPRENORPHINE/NALOXONE 8 MG/2 MG FILM PACKET SL SCH ×3 (01:35→13:02)
[2023-02-14 08:36] LABS: BASO % 1.2 % (0-2.0); EOS % 2.8 % (0-4.5); HEMATOCRIT 41.2 % (35.4-49); HEMOGLOBIN 13.9 GM/dL (11.7-16.9); LYMPH % 20.8 % (8-40); MCH 29.7 pg (25.7-33.7); MCHC 33.8 g/dl (32.0-35.9); MEAN CELL VOLUME 87.6 fl (80-96); MEAN PLT VOLUME 6.7 fl (7.5-11.1); MONO % 8.3 % (3.8-10.2); NEUT % 66.9 % (42.8-82.8); PLATELET COUNT 380 10^3/uL (134-434); RDW 13.8 % (11.9-15.9); WHITE BLOOD COUNT 9.8 K/mm3 (4.0-10.0)
[2023-02-14 09:01] LABS: POTASSIUM 4.1 mmol/L (3.5-5.1)
[2023-02-14 09:07] LABS: CALCIUM 8.6 mg/dL (8.5-10.1)
[2023-02-14 09:08] LABS: ALBUMIN 3.6 g/dl (3.4-5.0); BLOOD UREA NITROGEN 9.8 mg/dL (7-18); MAGNESIUM 1.7 mg/dL (1.8-2.4)
[2023-02-14 09:11] LABS: CREATININE 0.6 mg/dL (0.55-1.3)
[2023-02-14 09:12] LABS: BILIRUBIN,TOTAL 0.7 mg/dL (0.2-1); TOT PROT 6.6 g/dl (6.4-8.2)
[2023-02-14] MEDS ORDERED: BETAMETHASONE DIPR 0.05% OINT 45 GM TUBE TP SCH (10:00)
[2023-02-14] MEDS ORDERED: FLUTICASONE/UMECLIDIN/VILANTER(100-62.5-25 TRELEGY ELLIPTA) INAHLER IH SCH (10:00)
[2023-02-14] MEDS ORDERED: ENOXAPARIN NA (PORCINE) 40 MG/0.4 ML DISP.SYRIN SQ SCH (10:00)
[2023-02-14] MEDS ORDERED: NICOTINE 14 MG/24 HOURS TOPICAL PATCH TD SCH (10:00)
[2023-02-14] MEDS ORDERED: CALCIPOTRIENE TP SCH (10:00)
[2023-02-14 10:36] VITALS: RESP 20
[2023-02-14] MEDS ORDERED: MECLIZINE HCL 25 MG TABLET (FP) PO SCH (12:00)
[2023-02-14] MEDS ORDERED: SODIUM CHLORIDE 1,000 ML IV SCH (12:34)
[2023-02-14 14:13] VITALS: BP 131/79; PULSE 87; TEMP 97.7
[2023-02-14] MEDS ORDERED: MAGNESIUM OXIDE 400 MG TABLET (FP) PO ONE (16:30)
[2023-02-14] MEDS ORDERED: DULoxetine HCL 30 MG CAPSULE.DR PO SCH (22:00)
[2023-02-14] MEDS ORDERED: ATORVASTATIN CA 40 MG TABLET (FP) PO SCH (22:00)
== END 2023-02-14 19:00 | disposition home or self-care (01) | DRG 312 ==
LOC: JER 15:06 → JERBED 18:07 → J4S 19:37
PROVIDERS: ADMIT Internal Medicine; ATTEND Internal Medicine
DX: I95.1 Orthostatic hypotension (principal); I45.2 Bifascicular block; J96.11 Chronic respiratory failure with hypoxia; J44.9 Chronic obstructive pulmonary disease, unspecified; I10 Essential (primary) hypertension; L40.9 Psoriasis, unspecified; E78.5 Hyperlipidemia, unspecified; F17.210 Nicotine dependence, cigarettes, uncomplicated; Z99.81 Dependence on supplemental oxygen; E86.9 Volume depletion, unspecified; E83.42 Hypomagnesemia
CPT/HCPCS: 0241U-QW; 36415; 70450-TC; 71045-TC-FY; 80053; 82550; 83735; 84484; 85025; 85610; 85730; 86850; 86900; 86901; 93005; 93010; 99285-25

== ENCOUNTER 2023-04-19 22:22 | Inpatient (IN) | payer OTHER ==
[2023-04-19] MEDS ORDERED: ALBUTEROL SO4 2.5/IPRATROPIUM 0.5 INH SOL 3 ML VIAL.NEB. NEB ONE (22:30)
[2023-04-19] MEDS ORDERED: methylPREDNISolone NA SUCC 125 MG/2 ML VIAL IVPUSH ONE (22:33)
[2023-04-19] MEDS ORDERED: MAGNESIUM SULF 50% (8.12 MEQ/2 ML-1 GM VIAL) IVPB ONE (22:34)
[2023-04-19] MEDS ORDERED: MAGNESIUM 1GM/D5W - 1 GM/100 ML IVPB IVPB ONE (22:39)
[2023-04-19] MEDS ORDERED: methylPREDNISolone NA SUCC 125 MG/2 ML VIAL ONE (22:39)
[2023-04-19] MEDS: ALBUTEROL SO4 2.5/IPRATROPIUM 0.5 INH SOL 3 ML VIAL.NEB. NEB SCH (22:55)
[2023-04-19 22:59] LABS: VENOUS BASE EXCESS 0.3 mmol/L (-2-2); VENOUS O2 SATURATION 63.6 % (70-80)
[2023-04-19 23:00] LABS: VENOUS PCO2 82.6 mmHg (38-52); VENOUS PH 7.195 (7.310-7.410)
[2023-04-19 23:07] LABS: BASO % 0.8 % (0-2.0); EOS % 0.6 % (0-4.5); HEMATOCRIT 43.6 % (35.4-49); HEMOGLOBIN 14.3 GM/dL (11.7-16.9); INR 1.1 (0.83-1.09); LYMPH % 4.2 % (8-40); MCHC 32.8 g/dl (32.0-35.9); MEAN CELL VOLUME 88.4 fl (80-96); MEAN PLT VOLUME 6.4 fl (7.5-11.1); MONO % 6.5 % (3.8-10.2); NEUT % 87.9 % (42.8-82.8); PLATELET COUNT 451 10^3/uL (134-434); PROTHROMBIN TIME (PATIENT) 12.7 SEC (9.7-13.0); RBC 4.93 M/mm3 (4.00-5.60); RDW 14.2 % (11.9-15.9); WHITE BLOOD COUNT 12.6 K/mm3 (4.0-10.0)
[2023-04-19 23:23] LABS: POTASSIUM 4.3 mmol/L (3.5-5.1)
[2023-04-19 23:26] LABS: BLOOD UREA NITROGEN 3.7 mg/dL (7-18)
[2023-04-19 23:27] LABS: ALBUMIN 3.8 g/dl (3.4-5.0)
[2023-04-19 23:30] LABS: CREATININE 0.6 mg/dL (0.55-1.3)
[2023-04-19 23:31] LABS: BILIRUBIN,TOTAL 0.5 mg/dL (0.2-1); TOT PROT 7.4 g/dl (6.4-8.2)
[2023-04-20] MEDS: ALBUTEROL SO4 2.5/IPRATROPIUM 0.5 INH SOL 3 ML VIAL.NEB. NEB SCH (00:27)
[2023-04-20] MEDS ORDERED: ALBUTEROL SO4 0.083% IH SOL 2.5 MG/3 ML VIAL.NEB. NEB ONE ×4 (00:38→07:32)
[2023-04-20] MEDS ORDERED: ALBUTEROL SO4 2.5/IPRATROPIUM 0.5 INH SOL 3 ML VIAL.NEB. NEB PRN (01:57)
[2023-04-20] MEDS ORDERED: BUPRENORPHINE/NALOXONE 8 MG/2 MG FILM PACKET ONE (06:09)
[2023-04-20] MEDS: BUPRENORPHINE/NALOXONE 8 MG/2 MG FILM PACKET SL SCH ×3 (06:13→21:49)
[2023-04-20] MEDS: ALBUTEROL SO4 0.083% IH SOL 2.5 MG/3 ML VIAL.NEB. NEB SCH ×2 (07:21→20:02)
[2023-04-20] MEDS ORDERED: ALBUTEROL SO4 2.5/IPRATROPIUM 0.5 INH SOL 3 ML VIAL.NEB. NEB SCH ×2 (08:00)
[2023-04-20 08:30] LABS: MCHC 34.1 g/dl (32.0-35.9); MEAN CELL VOLUME 87.8 fl (80-96); MEAN PLT VOLUME 6.8 fl (7.5-11.1); PLATELET COUNT 438 10^3/uL (134-434); RBC 4.67 M/mm3 (4.00-5.60); WHITE BLOOD COUNT 9.9 K/mm3 (4.0-10.0)
[2023-04-20 08:48] LABS: POTASSIUM 4.2 mmol/L (3.5-5.1)
[2023-04-20 08:49] LABS: BLOOD UREA NITROGEN 6.1 mg/dL (7-18)
[2023-04-20 08:52] LABS: CALCIUM 9.3 mg/dL (8.5-10.1)
[2023-04-20 08:53] LABS: ALBUMIN 3.5 g/dl (3.4-5.0); MAGNESIUM 2.5 mg/dL (1.8-2.4)
[2023-04-20 08:56] LABS: CREATININE 0.7 mg/dL (0.55-1.3)
[2023-04-20 08:58] LABS: BILIRUBIN,TOTAL 0.4 mg/dL (0.2-1); TOT PROT 7.1 g/dl (6.4-8.2)
[2023-04-20] MEDS ORDERED: AZITHROMYCIN IVPB 500 MG/250 ML BAG IVPB ONE (09:06)
[2023-04-20] MEDS: ENOXAPARIN NA (PORCINE) 40 MG/0.4 ML DISP.SYRIN SQ SCH (09:17)
[2023-04-20] MEDS ORDERED: methylPREDNISolone NA SUCC 40 MG/1 ML VIAL IVPUSH SCH (10:00)
[2023-04-20] MEDS ORDERED: AZITHROMYCIN IVPB 500 MG/250 ML BAG IVPB SCH (10:00)
[2023-04-20] MEDS ORDERED: BUDESONIDE/FORMETEROL FUMARATE 80/4.5 mcg INHALER IH SCH ×2 (10:00)
[2023-04-20] MEDS: DOXYCYCLINE INJECTION 100 MG in DEXTROSE 5%-WATER 100 ML IVPB SCH ×2 (11:22→21:50)
[2023-04-20 11:59] VITALS: BMI 27.0
[2023-04-20 13:33] LABS: URINE APPEARANCE CLEAR; URINE BILIRUBIN NEGATIVE (NEGATIVE); URINE COLOR YELLOW; URINE GLUCOSE (UA) 1+ (NEGATIVE); URINE KETONE NEGATIVE (NEGATIVE); URINE LEUK ESTERASE NEGATIVE (NEGATIVE); URINE NITRITE NEGATIVE (NEGATIVE); URINE PROTEIN NEGATIVE (NEGATIVE); URINE UROBILINOGEN 0.2 mg/dL (0.2-1.0)
[2023-04-20] MEDS: NICOTINE 14 MG/24 HOURS TOPICAL PATCH TD SCH (14:17)
[2023-04-20] MEDS: methylPREDNISolone NA SUCC 40 MG/1 ML VIAL IVPUSH SCH ×2 (14:46→21:50)
[2023-04-20] MEDS: FLUTICASONE/UMECLIDIN/VILANTER(100-62.5-25 TRELEGY ELLIPTA) INAHLER IH SCH (18:46)
[2023-04-20] MEDS: BETAMETHASONE DIPR 0.05% OINT 45 GM TUBE TP SCH (18:54)
[2023-04-20] MEDS: ATORVASTATIN CA 40 MG TABLET (FP) PO SCH (21:50)
[2023-04-20] MEDS: DULoxetine HCL 30 MG CAPSULE.DR PO SCH (21:50)
[2023-04-21] MEDS: methylPREDNISolone NA SUCC 40 MG/1 ML VIAL IVPUSH SCH ×4 (03:55→21:48)
[2023-04-21] MEDS: BUPRENORPHINE/NALOXONE 8 MG/2 MG FILM PACKET SL SCH ×3 (06:25→21:48)
[2023-04-21 07:18] LABS: HEMATOCRIT 40.8 % (35.4-49); HEMOGLOBIN 13.2 GM/dL (11.7-16.9); MCHC 32.4 g/dl (32.0-35.9); MEAN CELL VOLUME 89.5 fl (80-96); MEAN PLT VOLUME 6.8 fl (7.5-11.1); PLATELET COUNT 449 10^3/uL (134-434); RBC 4.56 M/mm3 (4.00-5.60); RDW 13.6 % (11.9-15.9); WHITE BLOOD COUNT 19.5 K/mm3 (4.0-10.0)
[2023-04-21 07:37] LABS: ALBUMIN 3.4 g/dl (3.4-5.0); CALCIUM 9.4 mg/dL (8.5-10.1)
[2023-04-21 07:38] LABS: BLOOD UREA NITROGEN 17.5 mg/dL (7-18)
[2023-04-21 07:42] LABS: BILIRUBIN,TOTAL 0.4 mg/dL (0.2-1); CREATININE 0.5 mg/dL (0.55-1.3); TOT PROT 6.6 g/dl (6.4-8.2)
[2023-04-21] MEDS: ALBUTEROL SO4 0.083% IH SOL 2.5 MG/3 ML VIAL.NEB. NEB SCH ×4 (08:02→19:56)
[2023-04-21 09:12] LABS: ANISOCYTOSIS 1+; MACROCYTOSIS 0
[2023-04-21] MEDS: DOXYCYCLINE INJECTION 100 MG in DEXTROSE 5%-WATER 100 ML IVPB SCH ×2 (09:52→21:48)
[2023-04-21] MEDS: NICOTINE 14 MG/24 HOURS TOPICAL PATCH TD SCH (09:52)
[2023-04-21] MEDS: ENOXAPARIN NA (PORCINE) 40 MG/0.4 ML DISP.SYRIN SQ SCH (09:53)
[2023-04-21] MEDS: BETAMETHASONE DIPR 0.05% OINT 45 GM TUBE TP SCH (09:53)
[2023-04-21] MEDS: FLUTICASONE/UMECLIDIN/VILANTER(100-62.5-25 TRELEGY ELLIPTA) INAHLER IH SCH (09:54)
[2023-04-21] MEDS: PANTOPRAZOLE 40 MG TABLET PO SCH (12:14)
[2023-04-21] MEDS: ATORVASTATIN CA 40 MG TABLET (FP) PO SCH (21:47)
[2023-04-21] MEDS: DULoxetine HCL 30 MG CAPSULE.DR PO SCH (21:47)
[2023-04-22] MEDS: methylPREDNISolone NA SUCC 40 MG/1 ML VIAL IVPUSH SCH ×4 (03:50→21:17)
[2023-04-22] MEDS: BUPRENORPHINE/NALOXONE 8 MG/2 MG FILM PACKET SL SCH ×3 (05:37→21:13)
[2023-04-22] MEDS: ALBUTEROL SO4 0.083% IH SOL 2.5 MG/3 ML VIAL.NEB. NEB SCH ×4 (07:30→20:11)
[2023-04-22 10:06] LABS: HEMATOCRIT 40.7 % (35.4-49); HEMOGLOBIN 13.5 GM/dL (11.7-16.9); MCH 29.2 pg (25.7-33.7); MCHC 33.1 g/dl (32.0-35.9); MEAN CELL VOLUME 88.2 fl (80-96); MEAN PLT VOLUME 6.8 fl (7.5-11.1); PLATELET COUNT 449 10^3/uL (134-434); RBC 4.61 M/mm3 (4.00-5.60); RDW 13.8 % (11.9-15.9); WHITE BLOOD COUNT 15.4 K/mm3 (4.0-10.0)
[2023-04-22] MEDS: ENOXAPARIN NA (PORCINE) 40 MG/0.4 ML DISP.SYRIN SQ SCH (10:09)
[2023-04-22] MEDS: DOXYCYCLINE INJECTION 100 MG in DEXTROSE 5%-WATER 100 ML IVPB SCH ×2 (10:10→21:17)
[2023-04-22] MEDS: PANTOPRAZOLE 40 MG TABLET PO SCH (10:11)
[2023-04-22] MEDS: BETAMETHASONE DIPR 0.05% OINT 45 GM TUBE TP SCH (10:11)
[2023-04-22] MEDS: NICOTINE 14 MG/24 HOURS TOPICAL PATCH TD SCH (10:11)
[2023-04-22] MEDS: FLUTICASONE/UMECLIDIN/VILANTER(100-62.5-25 TRELEGY ELLIPTA) INAHLER IH SCH (10:12)
[2023-04-22 10:37] LABS: POTASSIUM 4.9 mmol/L (3.5-5.1)
[2023-04-22 10:56] LABS: ANISOCYTOSIS 1+; MACROCYTOSIS 0
[2023-04-22 11:25] LABS: BLOOD UREA NITROGEN 18.4 mg/dL (7-18); CALCIUM 9.2 mg/dL (8.5-10.1)
[2023-04-22 11:26] LABS: ALBUMIN 3.4 g/dl (3.4-5.0); MAGNESIUM 2.4 mg/dL (1.8-2.4)
[2023-04-22 11:28] LABS: CREATININE 0.8 mg/dL (0.55-1.3)
[2023-04-22 11:29] LABS: BILIRUBIN,TOTAL 0.3 mg/dL (0.2-1); TOT PROT 6.6 g/dl (6.4-8.2)
[2023-04-22] MEDS: DULoxetine HCL 30 MG CAPSULE.DR PO SCH (21:17)
[2023-04-22] MEDS: ATORVASTATIN CA 40 MG TABLET (FP) PO SCH (21:18)
[2023-04-23] MEDS: methylPREDNISolone NA SUCC 40 MG/1 ML VIAL IVPUSH SCH ×4 (02:10→21:27)
[2023-04-23] MEDS: BUPRENORPHINE/NALOXONE 8 MG/2 MG FILM PACKET SL SCH ×3 (05:24→21:18)
[2023-04-23] MEDS: ALBUTEROL SO4 0.083% IH SOL 2.5 MG/3 ML VIAL.NEB. NEB SCH ×4 (07:49→20:10)
[2023-04-23 09:47] LABS: HEMATOCRIT 41.8 % (35.4-49); HEMOGLOBIN 14.1 GM/dL (11.7-16.9); MCH 29.5 pg (25.7-33.7); MCHC 33.7 g/dl (32.0-35.9); MEAN CELL VOLUME 87.7 fl (80-96); MEAN PLT VOLUME 6.8 fl (7.5-11.1); PLATELET COUNT 491 10^3/uL (134-434); RBC 4.77 M/mm3 (4.00-5.60); RDW 13.8 % (11.9-15.9); WHITE BLOOD COUNT 13.3 K/mm3 (4.0-10.0)
[2023-04-23 09:53] LABS: POTASSIUM 4.5 mmol/L (3.5-5.1)
[2023-04-23 10:05] LABS: ALBUMIN 3.6 g/dl (3.4-5.0); CALCIUM 9.1 mg/dL (8.5-10.1)
[2023-04-23 10:06] LABS: BLOOD UREA NITROGEN 16.4 mg/dL (7-18); MAGNESIUM 2.4 mg/dL (1.8-2.4)
[2023-04-23 10:09] LABS: CREATININE 0.6 mg/dL (0.55-1.3)
[2023-04-23 10:10] LABS: BILIRUBIN,TOTAL 0.4 mg/dL (0.2-1); TOT PROT 6.8 g/dl (6.4-8.2)
[2023-04-23] MEDS: DOXYCYCLINE INJECTION 100 MG in DEXTROSE 5%-WATER 100 ML IVPB SCH ×2 (10:11→21:15)
[2023-04-23] MEDS: BETAMETHASONE DIPR 0.05% OINT 45 GM TUBE TP SCH (10:12)
[2023-04-23] MEDS: ENOXAPARIN NA (PORCINE) 40 MG/0.4 ML DISP.SYRIN SQ SCH (10:12)
[2023-04-23] MEDS: NICOTINE 14 MG/24 HOURS TOPICAL PATCH TD SCH (10:12)
[2023-04-23] MEDS: FLUTICASONE/UMECLIDIN/VILANTER(100-62.5-25 TRELEGY ELLIPTA) INAHLER IH SCH (10:13)
[2023-04-23] MEDS: PANTOPRAZOLE 40 MG TABLET PO SCH (10:13)
[2023-04-23 10:31] LABS: ANISOCYTOSIS 0; MACROCYTOSIS 0
[2023-04-23] MEDS: DULoxetine HCL 30 MG CAPSULE.DR PO SCH (21:15)
[2023-04-23] MEDS: ATORVASTATIN CA 40 MG TABLET (FP) PO SCH (21:16)
[2023-04-24] MEDS: methylPREDNISolone NA SUCC 40 MG/1 ML VIAL IVPUSH SCH ×4 (03:27→21:58)
[2023-04-24] MEDS: BUPRENORPHINE/NALOXONE 8 MG/2 MG FILM PACKET SL SCH ×3 (06:14→22:23)
[2023-04-24] MEDS: ALBUTEROL SO4 0.083% IH SOL 2.5 MG/3 ML VIAL.NEB. NEB SCH ×4 (08:00→19:55)
[2023-04-24 09:21] LABS: BASO % 0.1 % (0-2.0); HEMATOCRIT 41.7 % (35.4-49); HEMOGLOBIN 13.2 GM/dL (11.7-16.9); LYMPH % 5.3 % (8-40); MCH 28.5 pg (25.7-33.7); MCHC 31.8 g/dl (32.0-35.9); MEAN CELL VOLUME 89.8 fl (80-96); MEAN PLT VOLUME 6.7 fl (7.5-11.1); MONO % 5.8 % (3.8-10.2); NEUT % 88.8 % (42.8-82.8); PLATELET COUNT 443 10^3/uL (134-434); RBC 4.64 M/mm3 (4.00-5.60); RDW 13.4 % (11.9-15.9); WHITE BLOOD COUNT 11.1 K/mm3 (4.0-10.0)
[2023-04-24] MEDS: PANTOPRAZOLE 40 MG TABLET PO SCH (10:05)
[2023-04-24] MEDS: NICOTINE 14 MG/24 HOURS TOPICAL PATCH TD SCH (10:05)
[2023-04-24] MEDS: DOXYCYCLINE INJECTION 100 MG in DEXTROSE 5%-WATER 100 ML IVPB SCH ×2 (10:05→22:23)
[2023-04-24] MEDS: ENOXAPARIN NA (PORCINE) 40 MG/0.4 ML DISP.SYRIN SQ SCH (10:05)
[2023-04-24] MEDS: BETAMETHASONE DIPR 0.05% OINT 45 GM TUBE TP SCH (10:05)
[2023-04-24] MEDS: FLUTICASONE/UMECLIDIN/VILANTER(100-62.5-25 TRELEGY ELLIPTA) INAHLER IH SCH (10:06)
[2023-04-24 10:13] LABS: POTASSIUM 4.9 mmol/L (3.5-5.1)
[2023-04-24 10:19] LABS: BLOOD UREA NITROGEN 14.1 mg/dL (7-18); CALCIUM 8.7 mg/dL (8.5-10.1)
[2023-04-24 10:20] LABS: ALBUMIN 3.3 g/dl (3.4-5.0)
[2023-04-24 10:23] LABS: CREATININE 0.7 mg/dL (0.55-1.3)
[2023-04-24 10:24] LABS: BILIRUBIN,TOTAL 0.6 mg/dL (0.2-1); TOT PROT 6.3 g/dl (6.4-8.2)
[2023-04-24] MEDS: ATORVASTATIN CA 40 MG TABLET (FP) PO SCH (22:23)
[2023-04-24] MEDS: DULoxetine HCL 30 MG CAPSULE.DR PO SCH (22:23)
[2023-04-25] MEDS: methylPREDNISolone NA SUCC 40 MG/1 ML VIAL IVPUSH SCH ×4 (02:26→21:36)
[2023-04-25] MEDS: BUPRENORPHINE/NALOXONE 8 MG/2 MG FILM PACKET SL SCH ×3 (06:48→21:37)
[2023-04-25] MEDS: ALBUTEROL SO4 0.083% IH SOL 2.5 MG/3 ML VIAL.NEB. NEB SCH ×4 (08:00→20:29)
[2023-04-25 08:19] LABS: HEMATOCRIT 42.3 % (35.4-49); MCH 29.1 pg (25.7-33.7); MCHC 33.2 g/dl (32.0-35.9); MEAN CELL VOLUME 87.9 fl (80-96); MEAN PLT VOLUME 6.5 fl (7.5-11.1); PLATELET COUNT 449 10^3/uL (134-434); RBC 4.81 M/mm3 (4.00-5.60); RDW 13.9 % (11.9-15.9); WHITE BLOOD COUNT 11.4 K/mm3 (4.0-10.0)
[2023-04-25 08:43] LABS: POTASSIUM 5.8 mmol/L (3.5-5.1)
[2023-04-25 08:48] LABS: CALCIUM 9.3 mg/dL (8.5-10.1)
[2023-04-25 08:49] LABS: ALBUMIN 3.4 g/dl (3.4-5.0); BLOOD UREA NITROGEN 15.8 mg/dL (7-18)
[2023-04-25 08:52] LABS: CREATININE 0.8 mg/dL (0.55-1.3)
[2023-04-25 08:53] LABS: BILIRUBIN,TOTAL 0.5 mg/dL (0.2-1); TOT PROT 6.4 g/dl (6.4-8.2)
[2023-04-25] MEDS: ENOXAPARIN NA (PORCINE) 40 MG/0.4 ML DISP.SYRIN SQ SCH (09:26)
[2023-04-25] MEDS: PANTOPRAZOLE 40 MG TABLET PO SCH (09:26)
[2023-04-25] MEDS: DOXYCYCLINE INJECTION 100 MG in DEXTROSE 5%-WATER 100 ML IVPB SCH ×2 (09:26→21:36)
[2023-04-25] MEDS: NICOTINE 14 MG/24 HOURS TOPICAL PATCH TD SCH (09:26)
[2023-04-25] MEDS: FLUTICASONE/UMECLIDIN/VILANTER(100-62.5-25 TRELEGY ELLIPTA) INAHLER IH SCH (09:27)
[2023-04-25] MEDS: SODIUM ZIRCONIUM CYCLOSILICATE (LOKELMA) 5 GM PACKET PO SCH (09:57)
[2023-04-25] MEDS: guaiFENesin 600 MG TABLET.ER (FP) PO SCH ×2 (09:57→21:37)
[2023-04-25] MEDS: BETAMETHASONE DIPR 0.05% OINT 45 GM TUBE TP SCH (10:12)
[2023-04-25 10:28] LABS: ANISOCYTOSIS 0; HELMET CELLS 0; HOWELL-JOLLY BODIES 0; MACROCYTOSIS 0; OVALOCYTE 0; ROULEAU 0; SICKELED CELLS 0; TARGET CELLS 0; TEAR DROP CELLS 0; TOXIC GRANULATION 0
[2023-04-25] MEDS: DULoxetine HCL 30 MG CAPSULE.DR PO SCH (21:36)
[2023-04-25] MEDS: ATORVASTATIN CA 40 MG TABLET (FP) PO SCH (21:37)
[2023-04-26] MEDS: methylPREDNISolone NA SUCC 40 MG/1 ML VIAL IVPUSH SCH ×4 (02:50→21:45)
[2023-04-26] MEDS: BUPRENORPHINE/NALOXONE 8 MG/2 MG FILM PACKET SL SCH ×3 (06:07→22:14)
[2023-04-26] MEDS: ALBUTEROL SO4 0.083% IH SOL 2.5 MG/3 ML VIAL.NEB. NEB SCH ×4 (07:50→19:46)
[2023-04-26 09:15] LABS: BASO % 0.2 % (0-2.0); HEMATOCRIT 42.7 % (35.4-49); HEMOGLOBIN 13.6 GM/dL (11.7-16.9); LYMPH % 4.7 % (8-40); MCH 28.7 pg (25.7-33.7); MCHC 31.9 g/dl (32.0-35.9); MEAN CELL VOLUME 89.9 fl (80-96); MEAN PLT VOLUME 6.7 fl (7.5-11.1); MONO % 5.8 % (3.8-10.2); NEUT % 89.3 % (42.8-82.8); PLATELET COUNT 470 10^3/uL (134-434); RBC 4.75 M/mm3 (4.00-5.60); RDW 13.6 % (11.9-15.9); WHITE BLOOD COUNT 13.3 K/mm3 (4.0-10.0)
[2023-04-26 09:33] LABS: CALCIUM 8.5 mg/dL (8.5-10.1)
[2023-04-26 09:34] LABS: ALBUMIN 3.5 g/dl (3.4-5.0); BLOOD UREA NITROGEN 15.8 mg/dL (7-18)
[2023-04-26] MEDS: SODIUM ZIRCONIUM CYCLOSILICATE (LOKELMA) 5 GM PACKET PO SCH (09:34)
[2023-04-26] MEDS: ENOXAPARIN NA (PORCINE) 40 MG/0.4 ML DISP.SYRIN SQ SCH (09:34)
[2023-04-26] MEDS: FLUTICASONE/UMECLIDIN/VILANTER(100-62.5-25 TRELEGY ELLIPTA) INAHLER IH SCH (09:35)
[2023-04-26] MEDS: guaiFENesin 600 MG TABLET.ER (FP) PO SCH ×2 (09:35→22:14)
[2023-04-26] MEDS: NICOTINE 14 MG/24 HOURS TOPICAL PATCH TD SCH (09:35)
[2023-04-26] MEDS: PANTOPRAZOLE 40 MG TABLET PO SCH (09:35)
[2023-04-26 09:37] LABS: CREATININE 0.8 mg/dL (0.55-1.3)
[2023-04-26 09:39] LABS: BILIRUBIN,TOTAL 0.7 mg/dL (0.2-1); TOT PROT 6.3 g/dl (6.4-8.2)
[2023-04-26] MEDS: BETAMETHASONE DIPR 0.05% OINT 45 GM TUBE TP SCH (09:44)
[2023-04-26] MEDS: DOXYCYCLINE INJECTION 100 MG in DEXTROSE 5%-WATER 100 ML IVPB SCH ×2 (10:59→22:14)
[2023-04-26] MEDS: DULoxetine HCL 30 MG CAPSULE.DR PO SCH (22:14)
[2023-04-26] MEDS: ATORVASTATIN CA 40 MG TABLET (FP) PO SCH (22:15)
[2023-04-27] MEDS: methylPREDNISolone NA SUCC 40 MG/1 ML VIAL IVPUSH SCH ×2 (03:11→10:08)
[2023-04-27] MEDS: BUPRENORPHINE/NALOXONE 8 MG/2 MG FILM PACKET SL SCH ×3 (06:03→21:48)
[2023-04-27 07:17] VITALS: RESP 18
[2023-04-27] MEDS: ALBUTEROL SO4 0.083% IH SOL 2.5 MG/3 ML VIAL.NEB. NEB SCH ×4 (07:27→19:43)
[2023-04-27 09:18] LABS: BASO % 0.1 % (0-2.0); HEMATOCRIT 43.1 % (35.4-49); HEMOGLOBIN 13.4 GM/dL (11.7-16.9); LYMPH % 4.2 % (8-40); MCH 28.1 pg (25.7-33.7); MCHC 31.2 g/dl (32.0-35.9); MEAN CELL VOLUME 90.1 fl (80-96); MEAN PLT VOLUME 6.8 fl (7.5-11.1); NEUT % 89.7 % (42.8-82.8); PLATELET COUNT 444 10^3/uL (134-434); RBC 4.78 M/mm3 (4.00-5.60); RDW 13.7 % (11.9-15.9); WHITE BLOOD COUNT 12.9 K/mm3 (4.0-10.0)
[2023-04-27 09:42] LABS: CALCIUM 8.5 mg/dL (8.5-10.1)
[2023-04-27 09:43] LABS: ALBUMIN 3.4 g/dl (3.4-5.0); BLOOD UREA NITROGEN 16.9 mg/dL (7-18)
[2023-04-27 09:46] LABS: CREATININE 0.8 mg/dL (0.55-1.3)
[2023-04-27 09:48] LABS: BILIRUBIN,TOTAL 0.7 mg/dL (0.2-1); TOT PROT 6.1 g/dl (6.4-8.2)
[2023-04-27] MEDS: SODIUM ZIRCONIUM CYCLOSILICATE (LOKELMA) 5 GM PACKET PO SCH (10:05)
[2023-04-27] MEDS: DOXYCYCLINE INJECTION 100 MG in DEXTROSE 5%-WATER 100 ML IVPB SCH ×2 (10:06→22:33)
[2023-04-27] MEDS: NICOTINE 14 MG/24 HOURS TOPICAL PATCH TD SCH (10:07)
[2023-04-27] MEDS: ENOXAPARIN NA (PORCINE) 40 MG/0.4 ML DISP.SYRIN SQ SCH (10:07)
[2023-04-27] MEDS: guaiFENesin 600 MG TABLET.ER (FP) PO SCH ×2 (10:08→21:48)
[2023-04-27] MEDS: PANTOPRAZOLE 40 MG TABLET PO SCH (10:08)
[2023-04-27] MEDS: FLUTICASONE/UMECLIDIN/VILANTER(100-62.5-25 TRELEGY ELLIPTA) INAHLER IH SCH (10:09)
[2023-04-27] MEDS: BETAMETHASONE DIPR 0.05% OINT 45 GM TUBE TP SCH (10:11)
[2023-04-27] MEDS ORDERED: predniSONE 20 MG TABLET (UD) PO SCH (12:00)
[2023-04-27] MEDS: ATORVASTATIN CA 40 MG TABLET (FP) PO SCH (21:48)
[2023-04-27] MEDS: DULoxetine HCL 30 MG CAPSULE.DR PO SCH (21:49)
[2023-04-28 03:50] VITALS: BP 149/89; PULSE 86; TEMP 98.4
== END 2023-04-28 03:20 | disposition home or self-care (01) | DRG 190 ==
LOC: JER 22:22 → JERBED 22:46 → J7W 04-20 11:20
PROVIDERS: ADMIT Internal Medicine; ATTEND Nurse Practitioner Family
DX: J44.1 Chronic obstructive pulmonary disease with (acute) exacerbation (principal); J96.21 Acute and chronic respiratory failure with hypoxia; J96.22 Acute and chronic respiratory failure with hypercapnia; J98.11 Atelectasis; E87.29 Other acidosis; L40.9 Psoriasis, unspecified; I45.10 Unspecified right bundle-branch block; I10 Essential (primary) hypertension; K76.0 Fatty (change of) liver, not elsewhere classified; F41.8 Other specified anxiety disorders; E78.5 Hyperlipidemia, unspecified; D72.829 Elevated white blood cell count, unspecified; F11.10 Opioid abuse, uncomplicated; F17.200 Nicotine dependence, unspecified, uncomplicated; F19.10 Other psychoactive substance abuse, uncomplicated; Z86.19 Personal history of other infectious and parasitic diseases; Z99.81 Dependence on supplemental oxygen
CPT/HCPCS: 0241U-QW; 36415; 71045-TC-FY; 80053; 81003; 82803; 82962; 83735; 84100; 84484; 85025; 85027; 85610; 85730; 87086; 93005; 93010; 94010; 94150; 94640; 99285-25

== ENCOUNTER 2023-05-13 09:17 | Inpatient (IN) | payer OTHER ==
[2023-05-13 09:52] VITALS: BMI 27.0
[2023-05-13 10:56] LABS: HEMATOCRIT 42.4 % (35.4-49); HEMOGLOBIN 13.9 GM/dL (11.7-16.9); MCH 28.9 pg (25.7-33.7); MCHC 32.8 g/dl (32.0-35.9); MEAN CELL VOLUME 88.1 fl (80-96); MEAN PLT VOLUME 6.3 fl (7.5-11.1); PLATELET COUNT 297 10^3/uL (134-434); RBC 4.81 M/mm3 (4.00-5.60); RDW 13.9 % (11.9-15.9); WHITE BLOOD COUNT 8.6 K/mm3 (4.0-10.0)
[2023-05-13 10:57] LABS: VENOUS BASE EXCESS 3.8 mmol/L (-2-2); VENOUS O2 SATURATION 50.9 % (70-80); VENOUS PH 7.225 (7.310-7.410)
[2023-05-13 11:09] LABS: VENOUS PCO2 85.8 mmHg (38-52)
[2023-05-13] MEDS: ALBUTEROL SO4 2.5/IPRATROPIUM 0.5 INH SOL 3 ML VIAL.NEB. NEB SCH ×4 (11:14→12:21)
[2023-05-13] MEDS ORDERED: ALBUTEROL SO4 2.5/IPRATROPIUM 0.5 INH SOL 3 ML VIAL.NEB. NEB ONE (11:21)
[2023-05-13 11:36] LABS: POTASSIUM 4.9 mmol/L (3.5-5.1)
[2023-05-13 11:38] LABS: CALCIUM 8.7 mg/dL (8.5-10.1)
[2023-05-13 11:39] LABS: ALBUMIN 3.1 g/dl (3.4-5.0); BLOOD UREA NITROGEN 3.1 mg/dL (7-18)
[2023-05-13 11:42] LABS: CREATININE 0.8 mg/dL (0.55-1.3)
[2023-05-13 11:43] LABS: BILIRUBIN,TOTAL 0.5 mg/dL (0.2-1)
[2023-05-13 11:44] LABS: TOT PROT 6.6 g/dl (6.4-8.2)
[2023-05-13 11:50] LABS: N-TERMINAL BNP 61.3 pg/ml (5-125)
[2023-05-13 14:01] LABS: ANISOCYTOSIS 2+; MACROCYTOSIS 0; OVALOCYTE 2+
[2023-05-13] MEDS: AZITHROMYCIN IVPB 500 MG/250 ML BAG IVPB SCH (15:29)
[2023-05-13] MEDS ORDERED: ALBUTEROL SO4 2.5/IPRATROPIUM 0.5 INH SOL 3 ML VIAL.NEB. NEB SCH (16:00)
[2023-05-13] MEDS: ALBUTEROL SO4 0.083% IH SOL 2.5 MG/3 ML VIAL.NEB. NEB SCH ×2 (16:30→21:06)
[2023-05-13] MEDS: DULoxetine HCL 30 MG CAPSULE.DR PO SCH (22:23)
[2023-05-13] MEDS: BUPRENORPHINE/NALOXONE 8 MG/2 MG FILM PACKET SL SCH (22:24)
[2023-05-13] MEDS: ATORVASTATIN CA 40 MG TABLET (FP) PO SCH (22:24)
[2023-05-14] MEDS ORDERED: ACETAMINOPHEN 1000 MG/100 ML BAG IVPB PRN (00:32)
[2023-05-14] MEDS: BUPRENORPHINE/NALOXONE 8 MG/2 MG FILM PACKET SL SCH ×3 (05:55→21:57)
[2023-05-14] MEDS: ALBUTEROL SO4 0.083% IH SOL 2.5 MG/3 ML VIAL.NEB. NEB SCH ×4 (07:15→20:28)
[2023-05-14 09:25] LABS: HEMATOCRIT 41.9 % (35.4-49); HEMOGLOBIN 13.8 GM/dL (11.7-16.9); MCH 29.1 pg (25.7-33.7); MEAN PLT VOLUME 6.8 fl (7.5-11.1); PLATELET COUNT 392 10^3/uL (134-434); RBC 4.76 M/mm3 (4.00-5.60); WHITE BLOOD COUNT 15.1 K/mm3 (4.0-10.0)
[2023-05-14 09:48] LABS: POTASSIUM 4.8 mmol/L (3.5-5.1)
[2023-05-14] MEDS ORDERED: predniSONE 20 MG TABLET (UD) PO SCH (10:00)
[2023-05-14 10:01] LABS: BLOOD UREA NITROGEN 9.9 mg/dL (7-18)
[2023-05-14 10:04] LABS: CALCIUM 9.5 mg/dL (8.5-10.1); CREATININE 0.7 mg/dL (0.55-1.3)
[2023-05-14 10:06] LABS: MAGNESIUM 2.6 mg/dL (1.8-2.4)
[2023-05-14] MEDS: AZITHROMYCIN IVPB 500 MG/250 ML BAG IVPB SCH (10:24)
[2023-05-14] MEDS: ENOXAPARIN NA (PORCINE) 40 MG/0.4 ML DISP.SYRIN SQ SCH (10:24)
[2023-05-14] MEDS: PANTOPRAZOLE 40 MG TABLET PO SCH (10:24)
[2023-05-14] MEDS ORDERED: methylPREDNISolone NA SUCC 40 MG/1 ML VIAL IVPUSH SCH (10:45)
[2023-05-14] MEDS: FLUTICASONE/UMECLIDIN/VILANTER(100-62.5-25 TRELEGY ELLIPTA) INAHLER IH SCH (11:55)
[2023-05-14] MEDS: methylPREDNISolone NA SUCC 40 MG/1 ML VIAL IVPUSH SCH ×2 (14:17→21:58)
[2023-05-14] MEDS: ATORVASTATIN CA 40 MG TABLET (FP) PO SCH (21:57)
[2023-05-14] MEDS: DULoxetine HCL 30 MG CAPSULE.DR PO SCH (23:05)
[2023-05-15] MEDS: BUPRENORPHINE/NALOXONE 8 MG/2 MG FILM PACKET SL SCH ×3 (05:30→21:39)
[2023-05-15] MEDS: methylPREDNISolone NA SUCC 40 MG/1 ML VIAL IVPUSH SCH ×3 (05:31→21:39)
[2023-05-15] MEDS: ALBUTEROL SO4 0.083% IH SOL 2.5 MG/3 ML VIAL.NEB. NEB SCH ×4 (08:08→20:40)
[2023-05-15 08:36] VITALS: RESP 18
[2023-05-15] MEDS: ALBUTEROL SO4 HFA INHALER IH PRN (08:48)
[2023-05-15] MEDS: ENOXAPARIN NA (PORCINE) 40 MG/0.4 ML DISP.SYRIN SQ SCH (10:17)
[2023-05-15] MEDS: AZITHROMYCIN IVPB 500 MG/250 ML BAG IVPB SCH (10:17)
[2023-05-15] MEDS: PANTOPRAZOLE 40 MG TABLET PO SCH (10:17)
[2023-05-15] MEDS: FLUTICASONE/UMECLIDIN/VILANTER(100-62.5-25 TRELEGY ELLIPTA) INAHLER IH SCH (10:18)
[2023-05-15 10:25] LABS: HEMATOCRIT 39.1 % (35.4-49); HEMOGLOBIN 12.3 GM/dL (11.7-16.9); MCH 28.3 pg (25.7-33.7); MCHC 31.5 g/dl (32.0-35.9); MEAN CELL VOLUME 89.8 fl (80-96); MEAN PLT VOLUME 6.8 fl (7.5-11.1); PLATELET COUNT 454 10^3/uL (134-434); RBC 4.36 M/mm3 (4.00-5.60); RDW 13.8 % (11.9-15.9); WHITE BLOOD COUNT 13.8 K/mm3 (4.0-10.0)
[2023-05-15 10:33] LABS: BLOOD UREA NITROGEN 12.4 mg/dL (7-18); CALCIUM 8.8 mg/dL (8.5-10.1)
[2023-05-15 10:36] LABS: CREATININE 0.8 mg/dL (0.55-1.3)
[2023-05-15 10:37] LABS: BILIRUBIN,TOTAL 0.5 mg/dL (0.2-1)
[2023-05-15 10:38] LABS: TOT PROT 6.2 g/dl (6.4-8.2)
[2023-05-15 12:19] LABS: ANISOCYTOSIS 0; HELMET CELLS 0; HOWELL-JOLLY BODIES 0; MACROCYTOSIS 0; OVALOCYTE 0; ROULEAU 0; SICKELED CELLS 0; TARGET CELLS 0; TEAR DROP CELLS 0; TOXIC GRANULATION 0
[2023-05-15] MEDS ORDERED: AZITHROMYCIN 250 MG TABLET PO SCH (16:15)
[2023-05-15] MEDS: ATORVASTATIN CA 40 MG TABLET (FP) PO SCH (21:38)
[2023-05-15] MEDS: DULoxetine HCL 30 MG CAPSULE.DR PO SCH (21:38)
[2023-05-16] MEDS: methylPREDNISolone NA SUCC 40 MG/1 ML VIAL IVPUSH SCH ×2 (06:00→13:18)
[2023-05-16] MEDS: BUPRENORPHINE/NALOXONE 8 MG/2 MG FILM PACKET SL SCH ×2 (06:00→13:17)
[2023-05-16] MEDS: ALBUTEROL SO4 0.083% IH SOL 2.5 MG/3 ML VIAL.NEB. NEB SCH (08:30)
[2023-05-16 09:28] LABS: HEMATOCRIT 41.3 % (35.4-49); HEMOGLOBIN 13.4 GM/dL (11.7-16.9); MCH 28.8 pg (25.7-33.7); MCHC 32.4 g/dl (32.0-35.9); MEAN CELL VOLUME 88.7 fl (80-96); MEAN PLT VOLUME 6.6 fl (7.5-11.1); PLATELET COUNT 519 10^3/uL (134-434); RBC 4.65 M/mm3 (4.00-5.60); RDW 14.3 % (11.9-15.9); WHITE BLOOD COUNT 12.2 K/mm3 (4.0-10.0)
[2023-05-16] MEDS ORDERED: ALBUTEROL SO4 2.5/IPRATROPIUM 0.5 INH SOL 3 ML VIAL.NEB. NEB PRN (09:51)
[2023-05-16] MEDS ORDERED: ALBUTEROL SO4 0.083% IH SOL 2.5 MG/3 ML VIAL.NEB. NEB PRN (10:01)
[2023-05-16 10:05] LABS: POTASSIUM 4.6 mmol/L (3.5-5.1)
[2023-05-16 10:11] LABS: BLOOD UREA NITROGEN 15.1 mg/dL (7-18); CALCIUM 8.9 mg/dL (8.5-10.1); MAGNESIUM 2.1 mg/dL (1.8-2.4)
[2023-05-16 10:12] LABS: CREATININE 0.8 mg/dL (0.55-1.3)
[2023-05-16 10:14] LABS: PHOSPHOROUS 3.4 mg/dL (2.5-4.9)
[2023-05-16] MEDS: PANTOPRAZOLE 40 MG TABLET PO SCH (10:14)
[2023-05-16] MEDS: ENOXAPARIN NA (PORCINE) 40 MG/0.4 ML DISP.SYRIN SQ SCH (10:14)
[2023-05-16] MEDS: ALBUTEROL SO4 HFA INHALER IH PRN (10:15)
[2023-05-16] MEDS: FLUTICASONE/UMECLIDIN/VILANTER(100-62.5-25 TRELEGY ELLIPTA) INAHLER IH SCH (10:15)
[2023-05-16 11:19] VITALS: BP 143/76; PULSE 114; TEMP 97.8
== END 2023-05-16 15:15 | disposition home or self-care (01) | DRG 191 ==
LOC: JER 09:17 → JERBED 13:00 → J5S 14:01 → OBSVTOIN 05-15 09:43
PROVIDERS: ADMIT Internal Medicine; ATTEND Student in an Organized Health Care Education/Training Program
DX: J44.1 Chronic obstructive pulmonary disease with (acute) exacerbation (principal); F11.20 Opioid dependence, uncomplicated; J96.11 Chronic respiratory failure with hypoxia; J96.12 Chronic respiratory failure with hypercapnia; Z99.81 Dependence on supplemental oxygen; L40.9 Psoriasis, unspecified; I45.10 Unspecified right bundle-branch block; I10 Essential (primary) hypertension; F41.8 Other specified anxiety disorders; B97.4 Respiratory syncytial virus as the cause of diseases classified elsewhere; K21.9 Gastro-esophageal reflux disease without esophagitis; M79.7 Fibromyalgia; F17.210 Nicotine dependence, cigarettes, uncomplicated
CPT/HCPCS: 0241U-QW; 36415; 71045-TC-FY; 80048; 80053; 82803; 83735; 83880; 84100; 84484; 85025; 85027; 93005; 93010; 94640; 99285-25; G0378